=== PATIENT | male | born 1940 | race Caucasian/White ===

== ENCOUNTER 2019-01-30 15:46 | Emergency (ER) | payer MEDICARE, SELFPAY ==
[2019-01-30] VITALS (7 sets, daily range): BP systolic 112–137; BP diastolic 54–85; PULSE 120–172; RESP 10–24; O2SAT 96–100
--- NOTE | 2019-01-30 15:56 | DI.RAD.S_ITS ---
PROCEDURE: XR CHEST 1V INDICATIONS: chest pain TECHNIQUE: One view of the chest was acquired. COMPARISON: None. FINDINGS: Surgical changes and devices: None. Lungs and pleura: Lungs are clear. No pleural effusions or pneumothorax. Mediastinum: Mediastinal contours appear normal. Heart size is normal. Bones and chest wall: No suspicious bony lesions. Overlying soft tissues appear unremarkable. IMPRESSION: Normal chest. Dictated by: Abby Lee M.D. on 01/30/2019 at 16:38 Approved by: Abby Lee M.D. on 01/30/2019 at 16:39
--- NOTE | 2019-01-30 16:03 | ED.ARRPALP ---
HPI - Arrhythmia/Palpitations General Chief Complaint: Arrhythmia/Palpitations Stated Complaint: elevated heartrate - sent by Delilah Time Seen by Provider: 01/30/19 15:52 Source: patient and other (Dr. Yusuf) Mode of arrival: ambulatory Limitations: no limitations History of Present Illness HPI narrative: 78-year-old male comes into the emergency department with complaint of elevated heart rate. Patient was sent by Dr. Yusuf. He went for his annual physical and to establish care with Dr. Salgado and was noted to have a heart rate around 170. Patient states he has felt sort of flushed lately and maybe a little lightheaded and a little bit tired. He has not noticed any palpitations, denies any chest pain or pressure, no shortness of breath. No syncope. He denies any nausea no vomiting no new urinary issues. He occasionally has diarrhea but not regularly. Patient does have diabetes is on metformin and Lantus, takes lisinopril, allopurinol, statin as well as aspirin 81 mg and 1000 units of vitamin-D. Patient states he had a hernia repair on his left inguinal region as a child. He had a stress test remotely he states many years ago. Patient has never had his thyroid checked. Patient states that he has had symptoms for probably a couple days he has been active he pain to his house and has done some other physical activities recently. Related Data Home Medications Medication Instructions Recorded Confirmed allopurinol 300 mg PO DAILY 01/30/19 01/30/19 aspirin 81 mg PO DAILY 01/30/19 01/30/19 cholecalciferol (vitamin D3) 1,000 unit PO QPM 01/30/19 01/30/19 [Vitamin D3] insulin glargine [Lantus Solostar 25 units SUBCUT QPM 01/30/19 01/30/19 U-100 Insulin] lisinopril 40 mg PO DAILY 01/30/19 01/30/19 lovastatin 10 mg PO DAILY 01/30/19 01/30/19 metformin 1,000 mg PO BID 01/30/19 01/30/19 Allergies Allergy/AdvReac Type Severity Reaction Status Date / Time ampicillin Allergy Verified 01/30/19 16:28 Review of Systems Review of Systems ROS Unobtainable: All systems reviewed & are unremarkable except as noted in HPI and below Constitutional Denies chills, Denies excessive sweating, Reports fatigue, Denies fever(s), Denies lethargy, Denies weakness and Reports other (flushed) Cardiovascular Denies chest pain, Denies diaphoresis, Denies syncope, Denies rapid heart rate, Denies edema, Denies irregular heart rhythm, Reports lightheadedness, Denies radiating jaw, neck or arm pain, Denies palpitations, Denies dyspnea, Denies dyspnea on exertion and Denies orthopnea Respiratory Denies change in phlegm color, Denies chest congestion, Denies cough, Denies dyspnea, Denies dyspnea on exertion and Denies wheezing Gastrointestinal Gastrointestinal: Denies abdominal pain, Denies melena, Denies hematochezia, Denies change in bowel habits, Denies diarrhea, Denies nausea and Denies vomiting Genitourinary Denies hematuria, Denies difficulty urinating, Denies dysuria, Denies flank pain, Denies urinary frequency, Denies urinary incontinence and Denies urinary urgency Musculoskeletal Denies back pain Neurologic Denies syncope and Denies weakness Endocrine Denies excessive sweating, Reports fatigue and Denies palpitations Allergic/Immunologic Denies wheezing [facility] Medical History (Updated 01/30/19 @ 16:25 by Anusha Spence DO) Diabetes (Chronic) Dyslipidemia (Chronic) Gout (Chronic) Hypertension (Chronic) Surgical History (Updated 01/30/19 @ 16:09 by Anusha Spence DO) H/O inguinal hernia repair (Chronic) Social History (Updated 01/30/19 @ 16:10 by Anusha Spence DO) alcohol intake: current substance use type: does not use Social History (Updated 01/30/19 @ 16:10 by Anusha Spence DO) alcohol intake: current substance use type: does not use Exam Narrative Exam Narrative: GENERAL: Alert and oriented x three, well-nourished, well-appearing male in mild distress. HEENT: Head normocephalic, atraumatic, EOMI, pupils reactive, face symmetric, moist mucous membranes NECK: Supple, full range of motion CARDIOVASCULAR: Tachycardic and Regular rate and rhythm without murmurs, rubs or gallops. No JVD. RESPIRATORY: Breath sounds equal bilaterally, no wheezes rales or rhonchi. No tachypnea accessory muscle use. ABDOMEN: Soft, nontender. Normoactive bowel sounds all 4 quadrants. No guarding or rebound, rigidity, no mass : No CVA tenderness EXTREMITIES: Normal range of motion, no clubbing or edema. 2+ pulses lower extremities. Neurovascularly intact NEUROLOGICAL: Cranial nerves II through XII grossly intact. Moving all extremities SKIN: Warm, dry, no petechiae, no rashes or lesions. Initial Vital Signs Initial Vital Signs: Vital Signs Pulse Rate 172 H 01/30/19 15:56 Respiratory Rate 18 01/30/19 15:56 Blood Pressure 137/85 01/30/19 15:56 Pulse Oximetry 99 01/30/19 15:56 Course Orders Ordered: ED Orders 01/30/19 15:56 XR chest 1V Stat Complete Blood Count AUTO DIFF Stat Comprehensive Metabolic Panel Stat Lipase Stat Magnesium Stat Prothrombin Time INR Stat Thyroid Stimulating Hormone Stat Troponin & CK Cardiac Panel Stat EKG-12 Lead Stat DILTIAZEM (Diltiazem 125 Mg/125 Ml-D5w) 125 mg in 125 mls @ 5 mls/hr IV TITRATE NEFTALY; Protocol Last Titration: 01/30/19 17:03 Dose: 10 mg/hr, 10 mls/hr Admin: 01/30/19 16:33 Dose: 5 mg/hr, 5 mls/hr Discontinued Medications Adenosine (Adenocard) 6 mg IV NOW ONE Stop: 01/30/19 16:02 Last Admin: 01/30/19 16:05 Dose: 6 mg Adenosine (Adenocard) 12 mg IV NOW ONE Stop: 01/30/19 16:19 Last Admin: 01/30/19 16:12 Dose: 12 mg Aspirin (Aspirin Chew) 324 mg PO NOW ONE Stop: 01/30/19 16:02 Last Admin: 01/30/19 16:33 Dose: 324 mg Diltiazem HCl (Cardizem) 20 mg IV NOW ONE Stop: 01/30/19 16:20 Last Admin: 01/30/19 16:20 Dose: 20 mg Sodium Chloride (Normal Saline 0.9%) 1,000 mls @ 1,000 mls/hr IV BOLUS ONE Stop: 01/30/19 17:02 Last Infusion: 01/30/19 17:58 Dose: 0 mls/hr Admin: 01/30/19 16:29 Dose: 1,000 mls/hr Metoprolol Tartrate (Lopressor) 25 mg PO NOW ONE Stop: 01/30/19 17:18 Last Admin: 01/30/19 17:31 Dose: 25 mg Metoprolol Tartrate (Lopressor) 25 mg PO NOW ONE Stop: 01/30/19 17:59 Last Admin: 01/30/19 18:19 Dose: Not Given Vital Signs - 8 hr 01/30/19 15:56 01/30/19 16:20 01/30/19 16:30 Pulse Rate 172 H 172 H 148 H Respiratory Rate 18 18 Blood Pressure 137/85 128/76 Blood Pressure [Left Arm] 125/73 Pulse Oximetry 99 100 01/30/19 16:53 01/30/19 17:26 01/30/19 18:16 Pulse Rate 165 H 166 H 120 H Respiratory Rate 24 15 22 Blood Pressure Blood Pressure [Left Arm] 115/78 124/77 121/66 Pulse Oximetry 99 99 97 MDM - Arrhythmia/Palpitations Lab Data Result diagrams: 01/30/19 15:56 01/30/19 15:56 Lab Results 01/30/19 01/30/19 01/30/19 Range/Units 15:56 15:56 15:56 WBC 10.6 (4.5-11.0) X10^3/uL RBC 4.83 (4.5-5.9) X10^6/uL Hgb 14.9 (13.5-17.5) g/dL Hct 44.4 (41-53) % MCV 92.1 (80-100) fL MCH 30.9 (26-34) PG MCHC 33.5 (30-36) % RDW 13.6 (11.6-14.8) % Plt Count 438 H (150-400) X10^3/uL Neut % (Auto) 70.7 (50-75) % Lymph % (Auto) 17.8 L (25-40) % Evangeline % (Auto) 8.8 (3-14) % Eos % (Auto) 2.3 (2-4) % Baso % (Auto) 0.4 (0-2) % Neut # (Auto) 7500 H (1518-9473) /uL Lymph # (Auto) 1900 (7682-7330) /uL Evangeline # (Auto) 900 (0-900) /uL Eos # (Auto) 200 (0-450) /uL Baso # (Auto) 0 (0-100) /uL PT 13.4 H (10.1-12.7) SECONDS INR 1.2 (0.9-1.3) Sodium 141 (137-145) mmol/L Potassium 3.6 (3.4-5.1) mmol/L Chloride 102 (98-107) mmol/L Carbon Dioxide 24 (22-32) mmol/L BUN 16 (9-20) mg/dL Creatinine 1.20 (0.66-1.25) mg/dL Estimated GFR 58.9 L (>60) mL/min BUN/Creatinine Ratio 13.3 (6-22) Glucose 131 H (80-110) mg/dL Calcium 9.7 (8.4-10.2) mg/dL Magnesium (1.6-2.3) mg/dL Total Bilirubin 0.6 (0.2-1.3) mg/dL AST 20 (17-59) IU/L ALT 18 L (21-72) IU/L Alkaline Phosphatase 92 (38-126) U/L Total Creatine Kinase 70 (55-170) U/L CK-MB (CK-2) TNP CK-MB (CK-2) Rel Index TNP Troponin I < 0.012 (0.01-0.034) ng/mL Total Protein 7.6 (6.3-8.2) g/dL Albumin 4.4 (3.5-5.0) g/dL Globulin 3.2 (1.7-4.1) g/dL Albumin/Globulin Ratio 1.4 (1.0-2.8) Lipase 95 (23-300) U/L TSH (0.47-4.68) uIU/mL Specimen Hemolysis 01/30/19 01/30/19 Range/Units 15:56 15:56 WBC (4.5-11.0) X10^3/uL RBC (4.5-5.9) X10^6/uL Hgb (13.5-17.5) g/dL Hct (41-53) % MCV (80-100) fL MCH (26-34) PG MCHC (30-36) % RDW (11.6-14.8) % Plt Count (150-400) X10^3/uL Neut % (Auto) (50-75) % Lymph % (Auto) (25-40) % Evangeline % (Auto) (3-14) % Eos % (Auto) (2-4) % Baso % (Auto) (0-2) % Neut # (Auto) (6378-4941) /uL Lymph # (Auto) (5262-5100) /uL Evangeline # (Auto) (0-900) /uL Eos # (Auto) (0-450) /uL Baso # (Auto) (0-100) /uL PT (10.1-12.7) SECONDS INR (0.9-1.3) Sodium Cancelled (137-145) mmol/L Potassium Cancelled (3.4-5.1) mmol/L Chloride Cancelled (98-107) mmol/L Carbon Dioxide Cancelled (22-32) mmol/L BUN Cancelled (9-20) mg/dL Creatinine Cancelled (0.66-1.25) mg/dL Estimated GFR Cancelled (>60) mL/min BUN/Creatinine Ratio Cancelled (6-22) Glucose Cancelled (80-110) mg/dL Calcium Cancelled (8.4-10.2) mg/dL Magnesium 1.6 (1.6-2.3) mg/dL Total Bilirubin (0.2-1.3) mg/dL AST (17-59) IU/L ALT (21-72) IU/L Alkaline Phosphatase (38-126) U/L Total Creatine Kinase Cancelled (55-170) U/L CK-MB (CK-2) Cancelled CK-MB (CK-2) Rel Index Cancelled Troponin I Cancelled (0.01-0.034) ng/mL Total Protein (6.3-8.2) g/dL Albumin (3.5-5.0) g/dL Globulin (1.7-4.1) g/dL Albumin/Globulin Ratio (1.0-2.8) Lipase (23-300) U/L TSH 1.48 (0.47-4.68) uIU/mL Specimen Hemolysis Cancelled Imaging Data Chest x-ray: Radiologist's impression: [address] [address] XRay Report Signed Patient: Samina Adams HMR#: [id number] : 3Acct:[id number] Age/Sex: 78 / MDate of Service: 01/30/19 Loc: ED Accession Number: [id number] Procedure: XR chest 1V Ordering Provider: Anusha Spence D.O. PROCEDURE: XR CHEST 1V INDICATIONS: chest pain TECHNIQUE: One view of the chest was acquired. COMPARISON: None. FINDINGS: Surgical changes and devices: None. Lungs and pleura: Lungs are clear. No pleural effusions or pneumothorax. Mediastinum: Mediastinal contours appear normal. Heart size is normal. Bones and chest wall: No suspicious bony lesions. Overlying soft tissues appear unremarkable. IMPRESSION: Normal chest. Dictated by: Abby Lee M.D. on 01/30/2019 at 16:38 Approved by: Abby Lee M.D. on 01/30/2019 at 16:39 ECG Data Attestation: I personally reviewed and interpreted this ECG as follows: Prior ECG tracings: not available for review Interpretation: Supraventricular tachycardia with a rate of 169 QRS of [address] changes. No prior EKGs available. Patient receives adenosine 6 which made very little improvement, received 12 mg adenosine patient's heart rate slowed for a short period of time about 15 seconds. In that time we were able to see the patient appears to have flutter waves that his rhythm is likely an atrial flutter rather than in SVT. MDM Narrative Medical decision making narrative: Patient comes in with elevated heart rate, it is unclear how long this episode has been going on he has had symptoms for maybe a day or 2, although they have been very mild. He states he has had episodes on and off in the past and he has no idea what exactly they started or how frequently they happened or how frequently they last. Patient is not a candidate for electrical cardioversion based on that unless he was unstable which night now he does not appear to be patient started on Cardizem bolus followed by a drip as patient continued of elevated heart rate. Chest x-ray shows no acute process. Lab work shows no major abnormalities. Patient continues to be [place] [address] range. Patient has not dropped lower than this. I spoke with Dr. Brewer with local cardiology, he recommends continuing Cardizem. If patient's blood pressure will tolerate adding metoprolol 25 mg p.o. Q 6 hours. We do not have any ICU beds available so we will have to transfer the patient. Discussed with patient he lives in [place] so [place] be closer. Dr. Navarro on accepts for transfer. Discharge Plan Departure Clinical Impression: Atrial flutter with rapid ventricular response Prescriptions: No Action lovastatin 10 mg tablet 10 mg PO DAILY RF: 0 metformin 1,000 mg tablet 1,000 mg PO BID RF: 0 allopurinol 300 mg tablet 300 mg PO DAILY RF: 0 lisinopril 40 mg tablet 40 mg PO DAILY RF: 0 Lantus Solostar U-100 Insulin 100 unit/mL (3 mL) insulin pen 25 units subcut QPM RF: 0 aspirin 81 mg Tablet,Delayed Release (Dr/Ec) 81 mg PO DAILY RF: 0 cholecalciferol (vitamin D3) [Vitamin D3] 1,000 unit Capsule 1,000 unit PO QPM RF: 0
[2019-01-30] MEDS: ADENOSINE 6 MG/2 ML VIAL IV (16:05)
--- NOTE | 2019-01-30 16:06 | ED_ITS ---
HPI - Arrhythmia/Palpitations General Chief Complaint: Arrhythmia/Palpitations Stated Complaint: elevated heartrate - sent by Delilah Time Seen by Provider: 01/30/19 15:52 Source: patient and other (Dr. Yusuf) Mode of arrival: ambulatory Limitations: no limitations History of Present Illness HPI narrative: 78-year-old male comes into the emergency department with complaint of elevated heart rate. Patient was sent by Dr. Yusuf. He went for his annual physical and to establish care with Dr. Salgado and was noted to have a heart rate around 170. Patient states he has felt sort of flushed lately and maybe a little lightheaded and a little bit tired. He has not noticed any palpitations, denies any chest pain or pressure, no shortness of breath. No syncope. He denies any nausea no vomiting no new urinary issues. He occasionally has diarrhea but not regularly. Patient does have diabetes is on metformin and Lantus, takes lisinopril, allopurinol, statin as well as aspirin 81 mg and 1000 units of vitamin-D. Patient states he had a hernia repair on his left inguinal region as a child. He had a stress test remotely he states many years ago. Patient has never had his thyroid checked. Patient states that he has had symptoms for probably a couple days he has been active he pain to his house and has done some other physical activities recently. Related Data Home Medications Medication Instructions Recorded Confirmed allopurinol 300 mg PO DAILY 01/30/19 01/30/19 aspirin 81 mg PO DAILY 01/30/19 01/30/19 cholecalciferol (vitamin D3) 1,000 unit PO QPM 01/30/19 01/30/19 [Vitamin D3] insulin glargine [Lantus Solostar 25 units SUBCUT QPM 01/30/19 01/30/19 U-100 Insulin] lisinopril 40 mg PO DAILY 01/30/19 01/30/19 lovastatin 10 mg PO DAILY 01/30/19 01/30/19 metformin 1,000 mg PO BID 01/30/19 01/30/19 Allergies Allergy/AdvReac Type Severity Reaction Status Date / Time ampicillin Allergy Verified 01/30/19 16:28 Review of Systems Review of Systems ROS Unobtainable: All systems reviewed & are unremarkable except as noted in HPI and below Constitutional Denies chills, Denies excessive sweating, Reports fatigue, Denies fever(s), Denies lethargy, Denies weakness and Reports other (flushed) Cardiovascular Denies chest pain, Denies diaphoresis, Denies syncope, Denies rapid heart rate, Denies edema, Denies irregular heart rhythm, Reports lightheadedness, Denies radiating jaw, neck or arm pain, Denies palpitations, Denies dyspnea, Denies dyspnea on exertion and Denies orthopnea Respiratory Denies change in phlegm color, Denies chest congestion, Denies cough, Denies dyspnea, Denies dyspnea on exertion and Denies wheezing Gastrointestinal Gastrointestinal: Denies abdominal pain, Denies melena, Denies hematochezia, Denies change in bowel habits, Denies diarrhea, Denies nausea and Denies vomit ing Genitourinary Denies hematuria, Denies difficulty urinating, Denies dysuria, Denies flank pain, Denies urinary frequency, Denies urinary incontinence and Denies urinary urgency Musculoskeletal Denies back pain Neurologic Denies syncope and Denies weakness Endocrine Denies excessive sweating, Reports fatigue and Denies palpitations Allergic/Immunologic Denies wheezing [facility] Medical History (Updated 01/30/19 @ 16:25 by Anusha Spence DO) Diabetes (Chronic) Dyslipidemia (Chronic) Gout (Chronic) Hypertension (Chronic) Surgical History (Updated 01/30/19 @ 16:09 by Anusha Spence DO) H/O inguinal hernia repair (Chronic) Social History (Updated 01/30/19 @ 16:10 by Anusha Spence DO) alcohol intake: current substance use type: does not use Social History (Updated 01/30/19 @ 16:10 by Anusha Spence DO) alcohol intake: current substance use type: does not use Exam Narrative Exam Narrative: GENERAL: Alert and oriented x three, well-nourished, well- appearing male in mild distress. HEENT: Head normocephalic, atraumatic, EOMI, pupils reactive, face symmetric, moist mucous membranes NECK: Supple, full range of motion CARDIOVASCULAR: Tachycardic and Regular rate and rhythm without murmurs, rubs or gallops. No JVD. RESPIRATORY: Breath sounds equal bilaterally, no wheezes rales or rhonchi. No tachypnea accessory muscle use. ABDOMEN: Soft, nontender. Normoactive bowel sounds all 4 quadrants. No guarding or rebound, rigidity, no mass : No CVA tenderness EXTREMITIES: Normal range of motion, no clubbing or edema. 2+ pulses lower extremities. Neurovascularly intact NEUROLOGICAL: Cranial nerves II through XII grossly intact. Moving all extremities SKIN: Warm, dry, no petechiae, no rashes or lesions. Initial Vital Signs Initial Vital Signs: Vital Signs Pulse Rate 172 H 01/30/19 15:56 Respiratory Rate 18 01/30/19 15:56 Blood Pressure 137/85 01/30/19 15:56 Pulse Oximetry 99 01/30/19 15:56 Course Orders Ordered: ED Orders 01/30/19 15:56 XR chest 1V Stat Complete Blood Count AUTO DIFF Stat Comprehensive Metabolic Panel Stat Lipase Stat Magnesium Stat Prothrombin Time INR Stat Thyroid Stimulating Hormone Stat Troponin & CK Cardiac Panel Stat EKG-12 Lead Stat DILTIAZEM (Diltiazem 125 Mg/125 Ml-D5w) 125 mg in 125 mls @ 5 mls/hr IV TITRATE NEFTALY; Protocol Last Titration: 01/30/19 17:03 Dose: 10 mg/hr, 10 mls/hr Admin: 01/30/19 16:33 Dose: 5 mg/hr, 5 mls/hr Discontinued Medications Adenosine (Adenocard) 6 mg IV NOW ONE Stop: 01/30/19 16:02 Last Admin: 01/30/19 16:05 Dose: 6 mg Adenosine (Adenocard) 12 mg IV NOW ONE Stop: 01/30/19 16:19 Last Admin: 01/30/19 16:12 Dose: 12 mg Aspirin (Aspirin Chew) 324 mg PO NOW ONE Stop: 01/30/19 16:02 Last Admin: 01/30/19 16:33 Dose: 324 mg Diltiazem HCl (Cardizem) 20 mg IV NOW ONE Stop: 01/30/19 16:20 Last Admin: 01/30/19 16:20 Dose: 20 mg Sodium Chloride (Normal Saline 0.9%) 1,000 mls @ 1,000 mls/hr IV BOLUS ONE Stop: 01/30/19 17:02 Last Infusion: 01/30/19 17:58 Dose: 0 mls/hr Admin: 01/30/19 16:29 Dose: 1,000 mls/hr Metoprolol Tartrate (Lopressor) 25 mg PO NOW ONE Stop: 01/30/19 17:18 Last Admin: 01/30/19 17:31 Dose: 25 mg Metoprolol Tartrate (Lopressor) 25 mg PO NOW ONE Stop: 01/30/19 17:59 Last Admin: 01/30/19 18:19 Dose: Not Given Vital Signs - 8 hr 01/30/19 15:56 01/30/19 16:20 01/30/19 16:30 Pulse Rate 172 H 172 H 148 H Respiratory Rate 18 18 Blood Pressure 137/85 128/76 Blood Pressure [Left Arm] 125/73 Pulse Oximetry 99 100 01/30/19 16:53 01/30/19 17:26 01/30/19 18:16 Pulse Rate 165 H 166 H 120 H Respiratory Rate 24 15 22 Blood Pressure Blood Pressure [Left Arm] 115/78 124/77 121/66 Pulse Oximetry 99 99 97 MDM - Arrhythmia/Palpitations Lab Data Result diagrams: 01/30/19 15:56 01/30/19 15:56 Lab Results 01/30/19 01/30/19 01/30/19 Range/Units 15:56 15:56 15:56 WBC 10.6 (4.5-11.0) X10^3/uL RBC 4.83 (4.5-5.9) X10^6/uL Hgb 14.9 (13.5-17.5) g/dL Hct 44.4 (41-53) % MCV 92.1 (80-100) fL MCH 30.9 (26-34) PG MCHC 33.5 (30-36) % RDW 13.6 (11.6-14.8) % Plt Count 438 H (150-400) X10^3/uL Neut % (Auto) 70.7 (50-75) % Lymph % (Auto) 17.8 L (25-40) % [place] % (Auto) 8.8 (3-14) % Eos % (Auto) 2.3 (2-4) % Baso % (Auto) 0.4 (0-2) % Neut # (Auto) 7500 H (9774-3530) /uL Lymph # (Auto) 1900 (2158-8742) /uL [place] # (Auto) 900 (0-900) /uL Eos # (Auto) 200 (0-450) /uL Baso # (Auto) 0 (0-100) /uL PT 13.4 H (10.1-12.7) SECONDS INR 1.2 (0.9-1.3) Sodium 141 (137-145) mmol/L Potassium 3.6 (3.4-5.1) mmol/L Chloride 102 (98-107) mmol/L Carbon Dioxide 24 (22-32) mmol/L BUN 16 (9-20) mg/dL Creatinine 1.20 (0.66-1.25) mg/dL Estimated GFR 58.9 L (>60) mL/min BUN/Creatinine Ratio 13.3 (6-22) Glucose 131 H (80-110) mg/dL Calcium 9.7 (8.4-10.2) mg/dL Magnesium (1.6-2.3) mg/dL Total Bilirubin 0.6 (0.2-1.3) mg/dL AST 20 (17-59) IU/L ALT 18 L (21-72) IU/L Alkaline Phosphatase 92 (38-126) U/L Total Creatine Kinase 70 (55-170) U/L CK-MB (CK-2) TNP CK-MB (CK-2) Rel Index TNP Troponin I < 0.012 (0.01-0.034) ng/mL Total Protein 7.6 (6.3-8.2) g/dL Albumin 4.4 (3.5-5.0) g/dL Globulin 3.2 (1.7-4.1) g/dL Albumin/Globulin Ratio 1.4 (1.0-2.8) Lipase 95 (23-300) U/L TSH (0.47-4.68) uIU/mL Specimen Hemolysis 01/30/19 01/30/19 Range/Units 15:56 15:56 WBC (4.5-11.0) X10^3/uL RBC (4.5-5.9) X10^6/uL Hgb (13.5-17.5) g/dL Hct (41-53) % MCV (80-100) fL MCH (26-34) PG MCHC (30-36) % RDW (11.6-14.8) % Plt Count (150-400) X10^3/uL Neut % (Auto) (50-75) % Lymph % (Auto) (25-40) % [place] % (Auto) (3-14) % Eos % (Auto) (2-4) % Baso % (Auto) (0-2) % Neut # (Auto) (4558-1874) /uL Lymph # (Auto) (5474-0371) /uL [place] # (Auto) (0-900) /uL Eos # (Auto) (0-450) /uL Baso # (Auto) (0-100) /uL PT (10.1-12.7) SECONDS INR (0.9-1.3) Sodium Cancelled (137-145) mmol/L Potassium Cancelled (3.4-5.1) mmol/L Chloride Cancelled (98-107) mmol/L Carbon Dioxide Cancelled (22-32) mmol/L BUN Cancelled (9-20) mg/dL Creatinine Cancelled (0.66-1.25) mg/dL Estimated GFR Cancelled (>60) mL/min BUN/Creatinine Ratio Cancelled (6-22) Glucose Cancelled (80-110) mg/dL Calcium Cancelled (8.4-10.2) mg/dL Magnesium 1.6 (1.6-2.3) mg/dL Total Bilirubin (0.2-1.3) mg/dL AST (17-59) IU/L ALT (21-72) IU/L Alkaline Phosphatase (38-126) U/L Total Creatine Kinase Cancelled (55-170) U/L CK-MB (CK-2) Cancelled CK-MB (CK-2) Rel Index Cancelled Troponin I Cancelled (0.01-0.034) ng/mL Total Protein (6.3-8.2) g/dL Albumin (3.5-5.0) g/dL Globulin (1.7-4.1) g/dL Albumin/Globulin Ratio (1.0-2.8) Lipase (23-300) U/L TSH 1.48 (0.47-4.68) uIU/mL Specimen Hemolysis Cancelled Imaging Data Chest x-ray: Radiologist's impression: [address] [address] XRay Report Signed Patient: Samina Adams HMR#: [id number] : 3Acct:[id number] Age/Sex: 78 / MDate of Service: 01/30/19 Loc: ED Accession Number: [id number] Procedure: XR chest 1V Ordering Provider: Anusha Spence D.O. PROCEDURE: XR CHEST 1V INDICATIONS: chest pain TECHNIQUE: One view of the chest was acquired. COMPARISON: None. FINDINGS: Surgical changes and devices: None. Lungs and pleura: Lungs are clear. No pleural effusions or pneumothorax. Mediastinum: Mediastinal contours appear normal. Heart size is normal. Bones and chest wall: No suspicious bony lesions. Overlying soft tissues appear unremarkable. IMPRESSION: Normal chest. Dictated by: Abby Lee M.D. on 01/30/2019 at 16:38 Approved by: Abby Lee M.D. on 01/30/2019 at 16:39 ECG Data Attestation: I personally reviewed and interpreted this ECG as follows: Prior ECG tracings: not available for review Interpretation: Supraventricular tachycardia with a rate of 169 QRS of [address] changes. No prior EKGs available. Patient receives adenosine 6 which made very little improvement, received 12 mg adenosine patient's heart rate slowed for a short period of time about 15 seconds. In that time we were able to see the patient appears to have flutter waves that his rhythm is likely an atrial flutter rather than in SVT. MDM Narrative Medical decision making narrative: Patient comes in with elevated heart rate, it is unclear how long this episode has been going on he has had symptoms for maybe a day or 2, although they have been very mild. He states he has had episodes on and off in the past and he has no idea what exactly they started or how frequently they happened or how frequently they last. Patient is not a candidate for electrical cardioversion based on that unless he was unstable which night now he does not appear to be patient started on Cardizem bolus followed by a drip as patient continued of elevated heart rate. Chest x-ray shows no acute process. Lab work shows no major abnormalities. Patient continues to be elevated sometimes in the [id number] range. Patient has not dropped lower than this. I spoke with Dr. Brewer with local cardiology, he recommends continuing Cardizem. If patient's blood pressure will tolerate adding metoprolol 25 mg p.o. Q 6 hours. We do not have any ICU beds available so we will have to transfer the patient. Discussed with patient he lives in [place] so [place] be closer. Dr. Navarro on accepts for transfer. Discharge Plan Departure Clinical Impression: Atrial flutter with rapid ventricular response Prescriptions: No Action lovastatin 10 mg tablet 10 mg PO DAILY RF: 0 metformin 1,000 mg tablet 1,000 mg PO BID RF: 0 allopurinol 300 mg tablet 300 mg PO DAILY RF: 0 lisinopril 40 mg tablet 40 mg PO DAILY RF: 0 Lantus Solostar U-100 Insulin 100 unit/mL (3 mL) insulin pen 25 units subcut QPM RF: 0 aspirin 81 mg Tablet,Delayed Release (Dr/Ec) 81 mg PO DAILY RF: 0 cholecalciferol (vitamin D3) [Vitamin D3] 1,000 unit Capsule 1,000 unit PO QPM RF: 0
[2019-01-30] MEDS: ADENOSINE 6 MG/2 ML VIAL 12 MG IV (16:12)
[2019-01-30] MEDS: dilTIAZem 5 MG/ML SDV 20 MG IV (16:20)
[2019-01-30] MEDS: SODIUM CHLORIDE 0.9% 1,000 ML 1000 ML IV (16:29)
[2019-01-30] MEDS: ASPIRIN 81 MG TAB 324 MG PO (16:33)
[2019-01-30] MEDS: DILTIAZEM 125 MG/125 ML PIGGYBACK IV (16:33)
[2019-01-30 16:39] LABS: Add Manual Diff / Slide Review NO; Basophils Absolute Auto 0 /uL (0-100); Basophils Percent Auto 0.4 % (0-2); Eosinophils Absolute Auto 200 /uL (0-450); Eosinophils Percent Auto 2.3 % (2-4); Hematocrit 44.4 % (41-53); Hemoglobin 14.9 g/dL (13.5-17.5); Lymphocytes Absolute Auto 1900 /uL (1100-4500); Lymphocytes Percent Auto 17.8 % (25-40); Mean Corpuscular HGB Conc 33.5 % (30-36); Mean Corpuscular Hemoglobin 30.9 PG (26-34); Mean Corpuscular Volume 92.1 fL (80-100); Monocytes Absolute Auto 900 /uL (0-900); Monocytes Percent Auto 8.8 % (3-14); Neutrophils Absolute Auto 7500 /uL (1500-7000); Neutrophils Percent Auto 70.7 % (50-75); Platelet Count 438 X10^3/uL (150-400); Red Blood Cell Count 4.83 X10^6/uL (4.5-5.9); Red Cell Distribution Width 13.6 % (11.6-14.8); White Blood Cell Count 10.6 X10^3/uL (4.5-11.0)
[2019-01-30 16:44] LABS: INR 1.2 (0.9-1.3); Prothrombin Time 13.4 SECONDS (10.1-12.7)
[2019-01-30 16:54] LABS: Alanine Aminotransferase 18 IU/L (21-72); Albumin 4.4 g/dL (3.5-5.0); Albumin Globulin Ratio 1.4 (1.0-2.8); Alkaline Phosphatase 92 U/L (38-126); Aspartate Aminotransferase 20 IU/L (17-59); BUN Creatinine Ratio 13.3 (6-22); Bilirubin Total 0.6 mg/dL (0.2-1.3); Blood Urea Nitrogen 16 mg/dL (9-20); Calcium 9.7 mg/dL (8.4-10.2); Carbon Dioxide 24 mmol/L (22-32); Chloride 102 mmol/L (98-107); Creatine Kinase 70 U/L (55-170); Estimated Glomerular Filt Rate 58.9 mL/min (>60); Globulin 3.2 g/dL (1.7-4.1); Glucose 131 mg/dL (80-110); HEMOLYSIS < 15 (0-50); Lipase 95 U/L (23-300); Potassium 3.6 mmol/L (3.4-5.1); Sodium 141 mmol/L (137-145); Total Protein 7.6 g/dL (6.3-8.2)
[2019-01-30 16:55] LABS: Magnesium 1.6 mg/dL (1.6-2.3)
[2019-01-30 17:06] LABS: Troponin I < 0.012 ng/mL (0.01-0.034)
[2019-01-30 17:25] LABS: Thyroid Stimulating Hormone 1.48 uIU/mL (0.47-4.68)
[2019-01-30] MEDS: METOPROLOL IR 25 MG TABLET PO (17:31)
== END 2019-01-30 19:43 | disposition short-term general hospital (02) ==
PROVIDERS: Emergency Provider Emergency Medicine; Family Provider Internal Medicine; PCP Internal Medicine
DX: I48.92 Unspecified atrial flutter (principal)
CPT/HCPCS: 36591; 71045; 80053; 82550; 83690; 83735; 84443; 84484; 85025; 85610; 93005; 96365; 96366; 96375; 96376; 99284; 99291; J0153

== ENCOUNTER 2019-02-17 15:13 | Inpatient (IN) | payer MEDICARE, SELFPAY ==
[2019-02-17] VITALS (19 sets, daily range): BP systolic 97–141; BP diastolic 52–81; PULSE 67–126; RESP 12–23; TEMP 36.4–36.6; O2SAT 96–99; BMI 26.0
--- NOTE | 2019-02-17 15:19 | ED.ARRPALP ---
HPI - Arrhythmia/Palpitations General Chief Complaint: Arrhythmia/Palpitations Stated Complaint: states in Afib Time Seen by Provider: 02/17/19 15:13 Source: patient and family Mode of arrival: ambulatory Limitations: no limitations History of Present Illness HPI narrative: 78-year-old male nonsmoker with newly diagnosed atrial fibrillation returns with his son in the chief complaint of recurrence of AFib. Patient was seeing his primary care provider on January 31 for a routine annual and was found to be in a rapid atrial fibrillation. He had very little in the way of symptoms and was sent to the emergency department. He was not a candidate for cardioversion at that time and ended up requiring a drip of Cardizem, we had no available beds at the time and he was therefore transferred to [facility] in [place]. He was admitted there for 3 days and included a cardiology consultation, echocardiogram which showed no atrial appendage clot, patient was cardioverted and placed Eliquis and metoprolol. About a week later the patient had a recurrence of rapid AFib and he presented to the emergency department at [facility] at which point he was cardioverted and had his metoprolol increased. Today he presents because his watch notified him an elevated heart rate, he feels some palpitations but denies classic symptoms such as chest pain, shortness of breath dizziness, or lightheadedness. He states he has missed none of his doses of Eliquis Related Data Home Medications Medication Instructions Recorded Confirmed allopurinol 300 mg PO DAILY 01/30/19 02/17/19 cholecalciferol (vitamin D3) 1,000 unit PO QPM 01/30/19 02/17/19 [Vitamin D3] insulin glargine [Lantus Solostar 20 units SUBCUT QPM 01/30/19 02/17/19 U-100 Insulin] lisinopril 40 mg PO DAILY 01/30/19 02/17/19 lovastatin 10 mg PO DAILY 01/30/19 02/17/19 metformin 500 mg PO BID 01/30/19 02/17/19 apixaban [Eliquis] 5 mg PO BID 02/17/19 02/17/19 metoprolol succinate 25 mg PO BID 02/17/19 02/17/19 Allergies Allergy/AdvReac Type Severity Reaction Status Date / Time ampicillin Allergy causes Verified 02/17/19 15:58 bleeding in his bowels. Review of Systems Constitutional Denies chills, Denies fever(s), Denies lethargy and Denies weakness Eyes Denies change in vision, Denies eye discharge, Denies irritation and Denies loss of vision ENT Ears, Nose, Mouth, and Throat: Denies change in voice, Denies neck pain and Denies sore throat Cardiovascular Denies chest pain, Reports rapid heart rate, Denies irregular heart rhythm, Denies lightheadedness, Denies palpitations, Denies dyspnea, Denies dyspnea on exertion and Denies orthopnea Respiratory Denies cough, Denies dyspnea, Denies dyspnea on exertion and Denies wheezing Gastrointestinal Gastrointestinal: Denies abdominal pain, Denies change in bowel habits, Denies diarrhea, Denies nausea and Denies vomiting Genitourinary Denies hematuria, Denies flank pain, Denies urinary incontinence and Denies urinary urgency Musculoskeletal Denies neck pain Integumentary/Breasts Denies pruritus, Denies erythema, Denies rash and Denies wounds Neurologic Denies confusion, Denies loss of vision and Denies weakness Psychiatric Denies anxiety, Denies confusion, Denies depression, Denies homicidal ideation and Denies suicidal ideation Endocrine Denies palpitations Hematologic/Lymphatic Denies easy bruising Allergic/Immunologic Denies wheezing [facility] Medical History Diabetes (Chronic) Dyslipidemia (Chronic) Gout (Chronic) Hypertension (Chronic) Surgical History H/O inguinal hernia repair (Chronic) Social History (Updated 01/30/19 @ 16:10 by Anusha Spence DO) household members: spouse Smoking Status: Never smoker alcohol intake: current substance use type: does not use Social History household members: spouse Smoking Status: Never smoker alcohol intake: current substance use type: does not use Exam Narrative Exam Narrative: GENERAL: [78] year old patient appears stated age. Well-nourished, well-developed patient, in mild distress. HEAD: Atraumatic. Normocephalic. EYES: Pupils equal round and reactive. Extraocular motions intact. No scleral icterus. No injection or drainage. ENT: Nose without bleeding, purulent drainage. Throat without erythema, tonsillar hypertrophy or exudate. Airway patent. NECK: Trachea midline. Non tender CARDIOVASCULAR: Rapid and irregular rhythm without murmurs, gallops, or rubs. RESPIRATORY: Clear to auscultation. Breath sounds equal bilaterally. No wheezes, rales, or rhonchi. GASTROINTESTINAL: Abdomen soft, non-tender, nondistended. EXTREMITIES: No edema or joint tenderness. BACK: Nontender without deformity or crepitance. No flank tenderness. NEURO: AOx3. SKIN: No rash or erythema of visible areas Initial Vital Signs Initial Vital Signs: Vital Signs Temperature 97.6 F 02/17/19 15:21 Pulse Rate 117 H 02/17/19 15:21 Respiratory Rate 17 02/17/19 15:21 Blood Pressure 141/76 H 02/17/19 15:21 Pulse Oximetry 98 02/17/19 15:21 Procedures Cardioversion Consent Signed: Yes Indication: Rapid AFib, questionable ST depressions Number of attempts (shocks): 3 Joules used: 150 Cardiac rhythm post-cardioversion: Rapid AFib Procedural Sedation Patient Age: Patient is 5yrs or older Consent signed: Yes Time out performed: Yes Indication: cardioversion ASA Class: II Mallampati Airway Classification: Class II Preparation: vehicle monitor technician applied, pulse oximeter, capnometry used, supplemental O2 applied, suction/airway equipment at bedside and IV secured IV Propofol dose (mg): 50 Complications: hypoventilation Interventions: Airway repositioned Course Course Narrative: Patient with rapid atrial fibrillation is sedated and attempts at cardioversion given his use of Eliquis and ST depressions on EKG. The cardioversion was unsuccessful and patient was therefore put on Cardizem drip. Orders Ordered: ED Orders 02/17/19 15:30 Basic Metabolic Panel Stat Complete Blood Count AUTO DIFF Stat Magnesium Stat Thyroid Stimulating Hormone Stat Sodium Chloride (Normal Saline 0.9%) 1,000 mls @ 150 mls/hr IV CONT NEFTALY Last Infusion: 02/17/19 18:04 Dose: 150 mls/hr Admin: 02/17/19 16:00 Dose: 150 mls/hr DILTIAZEM (Diltiazem 125 Mg/125 Ml-D5w) 125 mg in 125 mls @ 5 mls/hr IV TITRATE NEFTALY; Protocol Last Titration: 02/17/19 18:05 Dose: 5 mg/hr, 5 mls/hr Admin: 02/17/19 17:04 Dose: 5 mg/hr, 5 mls/hr Discontinued Medications Diltiazem HCl (Cardizem) 10 mg IV NOW ONE Stop: 02/17/19 16:44 Last Admin: 02/17/19 17:03 Dose: 10 mg Propofol (Diprivan) 85 mg 1 mg/kg (85 mg) IV NOW ONE Stop: 02/17/19 16:33 Last Admin: 02/17/19 16:54 Dose: 50 mg Vital Signs - 8 hr 02/17/19 15:21 02/17/19 16:00 02/17/19 16:27 Temperature 97.6 F Pulse Rate 117 H 124 H Respiratory Rate 17 18 14 Blood Pressure 141/76 H Blood Pressure [Left Arm] 130/79 Pulse Oximetry 98 98 02/17/19 16:30 02/17/19 16:35 02/17/19 16:40 Temperature Pulse Rate 123 H 116 H 119 H Respiratory Rate 23 16 16 Blood Pressure Blood Pressure [Left Arm] 123/72 126/81 105/73 Pulse Oximetry 99 99 99 02/17/19 16:45 02/17/19 16:50 02/17/19 16:55 Temperature Pulse Rate 126 H 115 H 110 H Respiratory Rate 17 14 17 Blood Pressure Blood Pressure [Left Arm] 100/54 L 98/57 L 97/59 L Pulse Oximetry 98 96 96 02/17/19 17:03 02/17/19 17:30 02/17/19 18:00 Temperature Pulse Rate 108 H 93 H 91 H Respiratory Rate 15 12 Blood Pressure 115/64 Blood Pressure [Left Arm] 107/76 112/65 Pulse Oximetry 99 98 MDM - Arrhythmia/Palpitations Lab Data Result diagrams: 02/17/19 15:30 02/17/19 15:30 Lab Results 02/17/19 02/17/19 02/17/19 Range/Units 15:30 15:30 15:30 WBC 9.5 (4.5-11.0) X10^3/uL RBC 5.02 (4.5-5.9) X10^6/uL Hgb 15.3 (13.5-17.5) g/dL Hct 45.2 (41-53) % MCV 90.0 (80-100) fL MCH 30.4 (26-34) PG MCHC 33.8 (30-36) % RDW 13.5 (11.6-14.8) % Plt Count 410 H (150-400) X10^3/uL Neut % (Auto) 66.2 (50-75) % Lymph % (Auto) 22.8 L (25-40) % [place] % (Auto) 8.2 (3-14) % Eos % (Auto) 2.0 (2-4) % Baso % (Auto) 0.8 (0-2) % Neut # (Auto) 6300 (5110-0708) /uL Lymph # (Auto) 2200 (4524-4450) /uL [place] # (Auto) 800 (0-900) /uL Eos # (Auto) 200 (0-450) /uL Baso # (Auto) 100 (0-100) /uL Sodium 140 (137-145) mmol/L Potassium 4.0 (3.4-5.1) mmol/L Chloride 108 H (98-107) mmol/L Carbon Dioxide 20 L (22-32) mmol/L BUN 18 (9-20) mg/dL Creatinine 1.10 (0.66-1.25) mg/dL Estimated GFR > 60.0 (>60) mL/min BUN/Creatinine Ratio 16.4 (6-22) Glucose 126 H (80-110) mg/dL Calcium 10.2 (8.4-10.2) mg/dL Magnesium 1.9 (1.6-2.3) mg/dL TSH 1.34 (0.47-4.68) uIU/mL Discharge Plan Departure Patient Disposition: Admitted As Inpatient Clinical Impression: Atrial fibrillation Qualifiers: Atrial fibrillation type: paroxysmal Qualified Code(s): I48.0 - Paroxysmal atrial fibrillation Discharge Date/Time: 02/17/19 18:00 Interventions: ED Discharge Assessment Last Done: 02/17/19 18:00 Admit Date/Time: 02/17/19 17:36 Admit Provider: Tamara Babb
[2019-02-17 15:57] LABS: Add Manual Diff / Slide Review NO; Basophils Absolute Auto 100 /uL (0-100); Basophils Percent Auto 0.8 % (0-2); Eosinophils Absolute Auto 200 /uL (0-450); Hematocrit 45.2 % (41-53); Hemoglobin 15.3 g/dL (13.5-17.5); Lymphocytes Absolute Auto 2200 /uL (1100-4500); Lymphocytes Percent Auto 22.8 % (25-40); Mean Corpuscular HGB Conc 33.8 % (30-36); Mean Corpuscular Hemoglobin 30.4 PG (26-34); Monocytes Absolute Auto 800 /uL (0-900); Monocytes Percent Auto 8.2 % (3-14); Neutrophils Absolute Auto 6300 /uL (1500-7000); Neutrophils Percent Auto 66.2 % (50-75); Platelet Count 410 X10^3/uL (150-400); Red Blood Cell Count 5.02 X10^6/uL (4.5-5.9); Red Cell Distribution Width 13.5 % (11.6-14.8); White Blood Cell Count 9.5 X10^3/uL (4.5-11.0)
[2019-02-17] MEDS: SODIUM CHLORIDE 0.9% 1,000 ML 150 ML IV (16:00)
[2019-02-17 16:04] LABS: BUN Creatinine Ratio 16.4 (6-22); Blood Urea Nitrogen 18 mg/dL (9-20); Calcium 10.2 mg/dL (8.4-10.2); Carbon Dioxide 20 mmol/L (22-32); Chloride 108 mmol/L (98-107); Estimated Glomerular Filt Rate > 60.0 mL/min (>60); Glucose 126 mg/dL (80-110); HEMOLYSIS 21 (0-50); Magnesium 1.9 mg/dL (1.6-2.3); Sodium 140 mmol/L (137-145)
--- NOTE | 2019-02-17 16:18 | PC.NURSE ---
The only sx pt had was he noticed his heartrate on the monitor at home. denies chest pain, denies n/v, denies dizziness. Recently received cardioversion at [facility] Monday the 13 of February. On Elaquis and metoprolol. Pt alert, oriented arrived with his son.
[2019-02-17 16:38] LABS: Thyroid Stimulating Hormone 1.34 uIU/mL (0.47-4.68)
[2019-02-17] MEDS: PROPOFOL 200 MG/20 ML VIAL 85 MG IV (16:54)
[2019-02-17] MEDS: dilTIAZem 5 MG/ML SDV 10 MG IV (17:03)
[2019-02-17] MEDS: DILTIAZEM 125 MG/125 ML PIGGYBACK IV (17:04)
--- NOTE | 2019-02-17 17:29 | ED_ITS ---
HPI - Arrhythmia/Palpitations General Chief Complaint: Arrhythmia/Palpitations Stated Complaint: states in Afib Time Seen by Provider: 02/17/19 15:13 Source: patient and family Mode of arrival: ambulatory Limitations: no limitations History of Present Illness HPI narrative: 78-year-old male nonsmoker with newly diagnosed atrial fibrillation returns with his son in the chief complaint of recurrence of AFib. Patient was seeing his primary care provider on January 31 for a routine annual and was found to be in a rapid atrial fibrillation. He had very little in the way of symptoms and was sent to the emergency department. He was not a candidate for cardioversion at that time and ended up requiring a drip of Ca rdizem, we had no available beds at the time and he was therefore transferred to [facility] in [place]. He was admitted there for 3 days and included a cardiology consultation, echocardiogram which showed no atrial appendage clot, patient was cardioverted and placed Eliquis and metoprolol. About a week later the patient had a recurrence of rapid AFib and he presented to the emergency department at [facility] at which point he was cardioverted and had his metoprolol increased. Today he presents because his watch notified him an elevated heart rate, he feels some palpitations but denies classic symptoms such as chest pain, shortness of breath dizziness, or lightheadedness. He states he has missed none of his doses of Eliquis Related Data Home Medications Medication Instructions Recorded Confirmed allopurinol 300 mg PO DAILY 01/30/19 02/17/19 cholecalciferol (vitamin D3) 1,000 unit PO QPM 01/30/19 02/17/19 [Vitamin D3] insulin glargine [Lantus Solostar 20 units SUBCUT QPM 01/30/19 02/17/19 U-100 Insulin] lisinopril 40 mg PO DAILY 01/30/19 02/17/19 lovastatin 10 mg PO DAILY 01/30/19 02/17/19 metformin 500 mg PO BID 01/30/19 02/17/19 apixaban [Eliquis] 5 mg PO BID 02/17/19 02/17/19 metoprolol succinate 25 mg PO BID 02/17/19 02/17/19 Allergies Allergy/AdvReac Type Severity Reaction Status Date / Time ampicillin Allergy causes Verified 02/17/19 15:58 bleeding in his bowels. Review of Systems Constitutional Denies chills, Denies fever(s), Denies lethargy and Denies weakness Eyes Denies change in vision, Denies eye discharge, Denies irritation and Denies loss of vision ENT Ears, Nose, Mouth, and Throat: Denies change in voice, Denies neck pain and De nies sore throat Cardiovascular Denies chest pain, Reports rapid heart rate, Denies irregular heart rhythm, Denies lightheadedness, Denies palpitations, Denies dyspnea, Denies dyspnea on exertion and Denies orthopnea Respiratory Denies cough, Denies dyspnea, Denies dyspnea on exertion and Denies wheezing Gastrointestinal Gastrointestinal: Denies abdominal pain, Denies change in bowel habits, Denies diarrhea, Denies nausea and Denies vomiting Genitourinary Denies hematuria, Denies flank pain, Denies urinary incontinence and Denies urinary urgency Musculoskeletal Denies neck pain Integumentary/Breasts Denies pruritus, Denies erythema, Denies rash and Denies wounds Neurologic Denies confusion, Denies loss of vision and Denies weakness Psychiatric Denies anxiety, Denies confusion, Denies depression, Denies homicidal ideation and Denies suicidal ideation Endocrine Denies palpitations Hematologic/Lymphatic Denies easy bruising Allergic/Immunologic Denies wheezing PFSH Medical History Diabetes (Chronic) Dyslipidemia (Chronic) Gout (Chronic) Hypertension (Chronic) Surgical History H/O inguinal hernia repair (Chronic) Social History (Updated 01/30/19 @ 16:10 by Anusha Spence DO) household members: spouse Smoking Status: Never smoker alcohol intake: current substance use type: does not use Social History household members: spouse Smoking Status: Never smoker alcohol intake: current substance use type: does not use Exam Narrative Exam Narrative: GENERAL: [78] year old patient appears stated age. Well- nourished, well-developed patient, in mild distress. HEAD: Atraumatic. Normocephalic. EYES: Pupils equal round and reactive. Extraocular motions intact. No scleral icterus. No injection or drainage. ENT: Nose without bleeding, purulent drainage. Throat without erythema, tonsi llar hypertrophy or exudate. Airway patent. NECK: Trachea midline. Non tender CARDIOVASCULAR: Rapid and irregular rhythm without murmurs, gallops, or rubs. RESPIRATORY: Clear to auscultation. Breath sounds equal bilaterally. No wheezes, rales, or rhonchi. GASTROINTESTINAL: Abdomen soft, non-tender, nondistended. EXTREMITIES: No edema or joint tenderness. BACK: Nontender without deformity or crepitance. No flank tenderness. NEURO: AOx3. SKIN: No rash or erythema of visible areas Initial Vital Signs Initial Vital Signs: Vital Signs Temperature 97.6 F 02/17/19 15:21 Pulse Rate 117 H 02/17/19 15:21 Respiratory Rate 17 02/17/19 15:21 Blood Pressure 141/76 H 02/17/19 15:21 Pulse Oximetry 98 02/17/19 15:21 Procedures Cardioversion Consent Signed: Yes Indication: Rapid AFib, questionable ST depressions Number of attempts (shocks): 3 Joules used: 150 Cardiac rhythm post-cardioversion: Rapid AFib Procedural Sedation Patient Age: Patient is 5yrs or older Consent signed: Yes Time out performed: Yes Indication: cardioversion ASA Class: II Mallampati Airway Classification: Class II Preparation: air sampler applied, pulse oximeter, capnometry used, supplemental O2 applied, suction/airway equipment at bedside and IV secured IV Propofol dose (mg): 50 Complications: hypoventilation Interventions: Airway repositioned Course Course Narrative: Patient with rapid atrial fibrillation is sedated and attempts at cardioversion given his use of Eliquis and ST depressions on EKG. The cardioversion was unsuccessful and patient was therefore put on Cardizem drip. Orders Ordered: ED Orders 02/17/19 15:30 Basic Metabolic Panel Stat Complete Blood Count AUTO DIFF Stat Magnesium Stat Thyroid Stimulating Hormone Stat Sodium Chloride (Normal Saline 0.9%) 1,000 mls @ 150 mls/hr IV CONT NEFTALY Last Infusion: 02/17/19 18:04 Dose: 150 mls/hr Admin: 02/17/19 16:00 Dose: 150 mls/hr DILTIAZEM (Diltiazem 125 Mg/125 Ml-D5w) 125 mg in 125 mls @ 5 mls/hr IV TITRATE NEFTALY; Protocol Last Titration: 02/17/19 18:05 Dose: 5 mg/hr, 5 mls/hr Admin: 02/17/19 17:04 Dose: 5 mg/hr, 5 mls/hr Discontinued Medications Diltiazem HCl (Cardizem) 10 mg IV NOW ONE Stop: 02/17/19 16:44 Last Admin: 02/17/19 17:03 Dose: 10 mg Propofol (Diprivan) 85 mg 1 mg/kg (85 mg) IV NOW ONE Stop: 02/17/19 16:33 Last Admin: 02/17/19 16:54 Dose: 50 mg Vital Signs - 8 hr 02/17/19 15:21 02/17/19 16:00 02/17/19 16:27 Temperature 97.6 F Pulse Rate 117 H 124 H Respiratory Rate 17 18 14 Blood Pressure 141/76 H Blood Pressure [Left Arm] 130/79 Pulse Oximetry 98 98 02/17/19 16:30 02/17/19 16:35 02/17/19 16:40 Temperature Pulse Rate 123 H 116 H 119 H Respiratory Rate 23 16 16 Blood Pressure Blood Pressure [Left Arm] 123/72 126/81 105/73 Pulse Oximetry 99 99 99 02/17/19 16:45 02/17/19 16:50 02/17/19 16:55 Temperature Pulse Rate 126 H 115 H 110 H Respiratory Rate 17 14 17 Blood Pressure Blood Pressure [Left Arm] 100/54 L 98/57 L 97/59 L Pulse Oximetry 98 96 96 02/17/19 17:03 02/17/19 17:30 02/17/19 18:00 Temperature Pulse Rate 108 H 93 H 91 H Respiratory Rate 15 12 Blood Pressure 115/64 Blood Pressure [Left Arm] 107/76 112/65 Pulse Oximetry 99 98 MDM - Arrhythmia/Palpitations Lab Data Result diagrams: 02/17/19 15:30 02/17/19 15:30 Lab Results 02/17/19 02/17/19 02/17/19 Range/Units 15:30 15:30 15:30 WBC 9.5 (4.5-11.0) X10^3/uL RBC 5.02 (4.5-5.9) X10^6/uL Hgb 15.3 (13.5-17.5) g/dL Hct 45.2 (41-53) % MCV 90.0 (80-100) fL MCH 30.4 (26-34) PG MCHC 33.8 (30-36) % RDW 13.5 (11.6-14.8) % Plt Count 410 H (150-400) X10^3/uL Neut % (Auto) 66.2 (50-75) % Lymph % (Auto) 22.8 L (25-40) % [place] % (Auto) 8.2 (3-14) % Eos % (Auto) 2.0 (2-4) % Baso % (Auto) 0.8 (0-2) % Neut # (Auto) 6300 (9073-8355) /uL Lymph # (Auto) 2200 (7379-5861) /uL [place] # (Auto) 800 (0-900) /uL Eos # (Auto) 200 (0-450) /uL Baso # (Auto) 100 (0-100) /uL Sodium 140 (137-145) mmol/L Potassium 4.0 (3.4-5.1) mmol/L Chloride 108 H (98-107) mmol/L Carbon Dioxide 20 L (22-32) mmol/L BUN 18 (9-20) mg/dL Creatinine 1.10 (0.66-1.25) mg/dL Estimated GFR > 60.0 (>60) mL/min BUN/Creatinine Ratio 16.4 (6-22) Glucose 126 H (80-110) mg/dL Calcium 10.2 (8.4-10.2) mg/dL Magnesium 1.9 (1.6-2.3) mg/dL TSH 1.34 (0.47-4.68) uIU/mL Discharge Plan Departure Patient Disposition: Admitted As Inpatient Clinical Impression: Atrial fibrillation Qualifiers: Atrial fibrillation type: paroxysmal Qualified Code(s): I48.0 - Paroxysmal atrial fibrillation Discharge Date/Time: 02/17/19 18:00 Interventions: ED Discharge Assessment Last Done: 02/17/19 18:00 Admit Date/Time: 02/17/19 17:36 Admit Provider: Tamara Babb
--- NOTE | 2019-02-17 19:20 | PC.NURSE ---
Addendum entered by Claribel Dupree R.N. 02/17/19 22:31: 2230 - Pt resting in bed. desk monitor demostrates SR. Rate 69, BP 106/52. Cardizem gtt titrated to off. Metoprolol PO given as ordered. Monitor. SBA to bathroom. Denies lightheadedness. Steady gait. Awaiting additional meds from night pharmacy. Call light in reach. Original Note: 1829 - Pt to room from ER. Able to stand and ambulate in room. Denies lightheadedness, denies chest pain. Oriented to room and routine. Cardizem gtt @ 5mg/hr. Med to be placed in pharmacy. Wallet in safe. 1832 - Pt converted from A-fib to SR. See chart. 1919 - Dr. Babb notified that pt converted. Cardizem gtt continues at 5mg/hr. Pt state that he has a history of going down and then right back up again. Speaking of hr. Monitor. Also notified that pt is concerned with getting a referral to cardiology. States that he has an appointment in [place] in 2 weeks, but that he is concerned about the wait and frequency of returning to a-fib.
--- NOTE | 2019-02-17 20:53 | PM.HP.1 ---
History of Present Illness Date Patient Seen: 02/17/19 Time Patient Seen: 20:00 Chief complaint: states in Afib Narrative: Samina Adams (Bart) is a very pleasant 78-year-old non-smoking male with diabetes type 2, hypertension, hyperlipidemia and an auto immune conditions and newly diagnosed atrial fibrillation returns with his son in the chief complaint of recurrence of AFib. He recently established with Dr. Yusuf as his primary care provider and was seen on January 31 for a routine wellness exam and was found to be in a rapid atrial fibrillation. He had very little in the way of symptoms and was sent to the emergency department. [facility] had no available beds at the time and he was therefore transferred to [facility] in [place]. Per the patient, he was admitted there for 3 days, had a cardiology consultation, and echocardiogram which was normal. He was cardioverted and initiated on Apixaban and metoprolol. On discharge, he was referred to a [facility] outpatient washer machine who is in [place] twice a month as he lives in [place]. About a week later the patient had a recurrence of rapid AFib and he presented to the emergency department at [facility] at which point he was cardioverted and had his metoprolol increased. Today he presents because while sitting at his computer, he glanced at his watch which notified him an elevated heart rate of around 119, he felt palpitations but denied chest pain, shortness of breath dizziness, or lightheadedness. He does endorse having more frequent urination and his blood sugar increases when he feel palpitations. He denies nausea, vomiting, abdominal pain, peripheral neuropathy. Patient History Medical History (Updated 02/17/19 @ 21:18 by KATHARINE Ayala) Atrial fibrillation with rapid ventricular response (Acute) BPH (benign prostatic hyperplasia) (Chronic) History of elevated PSA (Chronic) Diabetes (Chronic) Dyslipidemia (Chronic) Gout (Chronic) Hypertension (Chronic) Surgical History H/O inguinal hernia repair (Chronic) Family History (Updated 02/17/19 @ 21:17 by KATHARINE Ayala) Mother Cancer Breast CA Father Prostate cancer Grandfather Diabetes mellitus Social History household members: spouse Smoking Status: Never smoker alcohol intake: current substance use type: does not use Family & Social History Social History: household members spouse Prior Living Arrangements House Safety & Behavioral: Feels Safe in Current Yes Environment Been Physically Hurt or No Threatened By a Person Suicidal Ideation Description None Tobacco & Substance use: Smoking Status Never smoker alcohol intake current alcohol intake frequency other, rare, wine has not drank since A-Fib dx Substance Use Type does not use Meds Home Medications Medication Instructions Recorded Confirmed Type allopurinol 300 mg PO BEDTIME 01/30/19 02/17/19 History cholecalciferol (vitamin D3) 1,000 unit PO QPM 01/30/19 02/17/19 History [Vitamin D3] insulin glargine [Lantus Solostar 20 units SUBCUT QPM 01/30/19 02/17/19 History U-100 Insulin] lisinopril 40 mg PO DAILY 01/30/19 02/17/19 History lovastatin 10 mg PO BEDTIME 01/30/19 02/17/19 History metformin 500 mg PO BID 01/30/19 02/17/19 History apixaban [Eliquis] 5 mg PO BID 02/17/19 02/17/19 History metoprolol succinate 25 mg PO BID 02/17/19 02/17/19 History Allergies Allergy/AdvReac Type Severity Reaction Status Date / Time ampicillin Allergy causes Verified 02/17/19 15:58 bleeding in his bowels. Review of Systems Review of Systems All systems reviewed & are unremarkable except as noted in HPI and below Exam Vital Signs (past 8 hours): - 02/17/19 15:21 02/17/19 16:00 02/17/19 16:27 Temperature 97.6 F Pulse Rate 117 H 124 H Respiratory Rate 17 18 14 Blood Pressure 141/76 H Blood Pressure [Left Arm] 130/79 Pulse Oximetry 98 98 02/17/19 16:30 02/17/19 16:35 02/17/19 16:40 Temperature Pulse Rate 123 H 116 H 119 H Respiratory Rate 23 16 16 Blood Pressure Blood Pressure [Left Arm] 123/72 126/81 105/73 Pulse Oximetry 99 99 99 02/17/19 16:45 02/17/19 16:50 02/17/19 16:55 Temperature Pulse Rate 126 H 115 H 110 H Respiratory Rate 17 14 17 Blood Pressure Blood Pressure [Left Arm] 100/54 L 98/57 L 97/59 L Pulse Oximetry 98 96 96 02/17/19 17:03 02/17/19 17:30 02/17/19 18:00 Temperature Pulse Rate 108 H 93 H 91 H Respiratory Rate 15 12 Blood Pressure 115/64 Blood Pressure [Left Arm] 107/76 112/65 Pulse Oximetry 99 98 02/17/19 18:30 02/17/19 19:00 Temperature 97.8 F Pulse Rate 105 H 76 Respiratory Rate 17 17 Blood Pressure 127/66 116/56 L Blood Pressure [Left Arm] Pulse Oximetry 98 98 Oxygen Delivery Method Room Air Oxygen Flow Rate 0 Narrative Exam Narrative: Gen: Alert, oriented 78 y.o. well-developed male, appears comfortable, mildly anxious HEENT: normocephalic, atraumatic, conjunctiva clear, sclera non-icteric, oral mucosa pink and moist Neck: supple, full ROM Resp: Lungs CTA, non-labored breathing CV: Irregularly irregular, no murmur or rubs Abd: soft, non-tender, normoactive BTs Skin: no lesions or rashes, dry and intact Neuro: Alert and oriented X 4 w/no focal deficits Extremities: moves all 4 extremities, is ambulatory Psyche: Mildly anxious, but very pleasant. Objective Labs Result Diagrams: 02/17/19 15:30 02/17/19 15:30 Labs: Laboratory Results - last 24 hr 02/17/19 02/17/19 02/17/19 15:30 15:30 15:30 WBC 9.5 RBC 5.02 Hgb 15.3 Hct 45.2 MCV 90.0 MCH 30.4 MCHC 33.8 RDW 13.5 Plt Count 410 H Neut % (Auto) 66.2 Lymph % (Auto) 22.8 L [place] % (Auto) 8.2 Eos % (Auto) 2.0 Baso % (Auto) 0.8 Neut # (Auto) 6300 Lymph # (Auto) 2200 [place] # (Auto) 800 Eos # (Auto) 200 Baso # (Auto) 100 Sodium 140 Potassium 4.0 Chloride 108 H Carbon Dioxide 20 L BUN 18 Creatinine 1.10 Estimated GFR > 60.0 BUN/Creatinine Ratio 16.4 Glucose 126 H Calcium 10.2 Magnesium 1.9 TSH 1.34 Assessment & Plan Assessment & Plan narrative: Samina Adams is a 78 y.o. male recently diagnosed with atrial fibrillation with RVR will be admitted to the ICU for management of such. Shortly after 1900, the Hospitalist team was informed he had converted. 1. Atrial fibrillation w/RVR, acute and present on admission, CHADS vas2 score of 4 Patient is being titrated on a diltiazem drip and will receive his evening dose of metoprolol succinate 25 mg tonight Telemetry He is started on oral diltiazem to start in the am. He will need referral to a local washer machine as he sees Dr. Yusuf Echo at [facility] was done 2 weeks ago and is not ordered for this admission Continue home dose of apixaban 5 mg po BID 2. Hypertension, chronic, stable Continue home dose of lisinopril 40 mg po daily 3. Diabetes type 2, well controlled and present on admission Pt. states last A1c is 6.2 and is trying to transition from medications to diet controlled. His glargine dose was recently decreased. Continue home dose of glargine 20 units at bedtime Hold oral antidiabetics Low dose correctional scale 4. Hyperlipidemia, chronic and controlled Continue home dose of lovastatin 10 mg po qhs 5. BPH, chronic He is not taking any medications for this at this time. 6. Gout, chronic Continue home dose of allopurinol Patient is admitted inpatient ICU as his/her stay is anticipated to exceed 2 midnights. FEN: NS at 100 ml/hour, carb control diet, check chemistries in the am VTE Prophylaxis: Continue current anticoagulation w/Apixaban Disposition: Presumed discharge to home with close cardiology follow-up Code status: Full code Admission time: 65 minutes Meds reconciled: Yes Scores CHADS-VASc Congestive heart failure: no Hypertension: yes Age 75 years or older: yes Diabetes mellitus: yes Stroke, TIA, or TE: no Vascular disease: no Age 65 to 74 years: no Sex category (female): Male CHADS-VASc Score: 4 Quality VTE Deep Vein Thrombosis/Pulmonary Embolism Present on Admission: No
--- NOTE | 2019-02-17 20:58 | P.HP_ITS ---
History of Present Illness Date Patient Seen: 02/17/19 Time Patient Seen: 20:00 Chief complaint: states in Afib Narrative: Samina Adams (Bart) is a very pleasant 78-year-old non-smoking male with diabetes type 2, hypertension, hyperlipidemia and an auto immune conditions and newly diagnosed atrial fibrillation returns with his son in the chief complaint of recurrence of AFib. He recently established with Dr. Yusuf as his primary care provider and was seen on January 31 for a routine wellness exam and was found to be in a rapid atrial fibrillation. He had very little in the way of symptoms and was sent to the emergency department. [facility] had no available beds at the time and he was therefore transferred to [facility] in [place]. Per the patient, he was admitted there for 3 days, had a cardiology consultation, and echocardiogram which was normal. He was cardioverted and initiated on Apixaban and metoprolol. On discharge, he was referred to a [facility] outpatient real estate attorney who is in [place] twice a month as he lives in [place]. About a week later the patient had a recurrence of rapid AFib and he presented to the emergency department at [facility] at which point he was cardioverted and had his metoprolol increased. Today he presents because while sitting at his computer, he glanced at his watch which notified him an elevated heart rate of around 119, he felt palpitations but denied chest pain, shortness of breath dizziness, or lightheadedness. He does endorse having more frequent urination and his blood sugar increases when he feel palpitations. He denies nausea, vomiting, abdominal pain, peripheral neuropathy. Patient History Medical History (Updated 02/17/19 @ 21:18 by KATHARINE Ayala) Atrial fibrillation with rapid ventricular response (Acute) BPH (benign prostatic hyperplasia) (Chronic) History of elevated PSA (Chronic) Diabetes (Chronic) Dyslipidemia (Chronic) Gout (Chronic) Hypertension (Chronic) Surgical History H/O inguinal hernia repair (Chronic) Family History (Updated 02/17/19 @ 21:17 by KATHARINE Ayala) Mother Cancer Breast CA Father Prostate cancer Grandfather Diabetes mellitus Social History household members: spouse Smoking Status: Never smoker alcohol intake: current substance use type: does not use Family & Social History Social History: household members spouse Prior Living Arrangements House Safety & Behavioral: Feels Safe in Current Yes Environment Been Physically Hurt or No Threatened By a Person Suicidal Ideation Description None Tobacco & Substance use: Smoking Status Never smoker alcohol intake current alcohol intake frequency other, rare, wine has not drank since A-Fib dx Substance Use Type does not use Meds Home Medications Medication Instructions Recorded Confirmed Type allopurinol 300 mg PO BEDTIME 01/30/19 02/17/19 History cholecalciferol (vitamin D3) 1,000 unit PO QPM 01/30/19 02/17/19 History [Vitamin D3] insulin glargine [Lantus Solostar 20 units SUBCUT QPM 01/30/19 02/17/19 History U-100 Insulin] lisinopril 40 mg PO DAILY 01/30/19 02/17/19 History lovastatin 10 mg PO BEDTIME 01/30/19 02/17/19 History metformin 500 mg PO BID 01/30/19 02/17/19 History apixaban [Eliquis] 5 mg PO BID 02/17/19 02/17/19 History metoprolol succinate 25 mg PO BID 02/17/19 02/17/19 History Allergies Allergy/AdvReac Type Severity Reaction Status Date / Time ampicillin Allergy causes Verified 02/17/19 15:58 bleeding in his bowels. Review of Systems Review of Systems All systems reviewed & are unremarkable except as noted in HPI and below Exam Vital Signs (past 8 hours): - 02/17/19 15:21 02/17/19 16:00 02/17/19 16:27 Temperature 97.6 F Pulse Rate 117 H 124 H Respiratory Rate 17 18 14 Blood Pressure 141/76 H Blood Pressure [Left Arm] 130/79 Pulse Oximetry 98 98 02/17/19 16:30 02/17/19 16:35 02/17/19 16:40 Temperature Pulse Rate 123 H 116 H 119 H Respiratory Rate 23 16 16 Blood Pressure Blood Pressure [Left Arm] 123/72 126/81 105/73 Pulse Oximetry 99 99 99 02/17/19 16:45 02/17/19 16:50 02/17/19 16:55 Temperature Pulse Rate 126 H 115 H 110 H Respiratory Rate 17 14 17 Blood Pressure Blood Pressure [Left Arm] 100/54 L 98/57 L 97/59 L Pulse Oximetry 98 96 96 02/17/19 17:03 02/17/19 17:30 02/17/19 18:00 Temperature Pulse Rate 108 H 93 H 91 H Respiratory Rate 15 12 Blood Pressure 115/64 Blood Pressure [Left Arm] 107/76 112/65 Pulse Oximetry 99 98 02/17/19 18:30 02/17/19 19:00 Temperature 97.8 F Pulse Rate 105 H 76 Respiratory Rate 17 17 Blood Pressure 127/66 116/56 L Blood Pressure [Left Arm] Pulse Oximetry 98 98 Oxygen Delivery Method Room Air Oxygen Flow Rate 0 Narrative Exam Narrative: Gen: Alert, oriented 78 y.o. well-developed male, appears comfortable, mildly anxious HEENT: normocephalic, atraumatic, conjunctiva clear, sclera non-icteric, oral mucosa pink and moist Neck: supple, full ROM Resp: Lungs CTA, non-labored breathing CV: Irregularly irregular, no murmur or rubs Abd: soft, non-tender, normoactive BTs Skin: no lesions or rashes, dry and intact Neuro: Alert and oriented X 4 w/no focal deficits Extremities: moves all 4 extremities, is ambulatory Psyche: Mildly anxious, but very pleasant. Objective Labs Result Diagrams: 02/17/19 15:30 02/17/19 15:30 Labs: Laboratory Results - last 24 hr 02/17/19 02/17/19 02/17/19 15:30 15:30 15:30 WBC 9.5 RBC 5.02 Hgb 15.3 Hct 45.2 MCV 90.0 MCH 30.4 MCHC 33.8 RDW 13.5 Plt Count 410 H Neut % (Auto) 66.2 Lymph % (Auto) 22.8 L [place] % (Auto) 8.2 Eos % (Auto) 2.0 Baso % (Auto) 0.8 Neut # (Auto) 6300 Lymph # (Auto) 2200 [place] # (Auto) 800 Eos # (Auto) 200 Baso # (Auto) 100 Sodium 140 Potassium 4.0 Chloride 108 H Carbon Dioxide 20 L BUN 18 Creatinine 1.10 Estimated GFR > 60.0 BUN/Creatinine Ratio 16.4 Glucose 126 H Calcium 10.2 Magnesium 1.9 TSH 1.34 Assessment & Plan Assessment & Plan narrative: Samina Adams is a 78 y.o. male recently diagnosed with atrial fibrillation with RVR will be admitted to the ICU for management of such. Shortly after 1900, the Hospitalist team was informed he had converted. 1. Atrial fibrillation w/RVR, acute and present on admission, CHADS vas2 score of 4 * Patient is being titrated on a diltiazem drip and will receive his evening dose of metoprolol succinate 25 mg tonight * Telemetry * He is started on oral diltiazem to start in the am. * He will need referral to a local real estate attorney as he sees Dr. Yusuf * Echo at [facility] was done 2 weeks ago and is not ordered for this admission * Continue home dose of apixaban 5 mg po BID 2. Hypertension, chronic, stable * Continue home dose of lisinopril 40 mg po daily 3. Diabetes type 2, well controlled and present on admission * Pt. states last A1c is 6.2 and is trying to transition from medications to diet controlled. His glargine dose was recently decreased. * Continue home dose of glargine 20 units at bedtime * Hold oral antidiabetics * Low dose correctional scale 4. Hyperlipidemia, chronic and controlled * Continue home dose of lovastatin 10 mg po qhs 5. BPH, chronic * He is not taking any medications for this at this time. 6. Gout, chronic * Continue home dose of allopurinol Patient is admitted inpatient ICU as his/her stay is anticipated to exceed 2 midnights. FEN: NS at 100 ml/hour, carb control diet, check chemistries in the am VTE Prophylaxis: Continue current anticoagulation w/Apixaban Disposition: Presumed discharge to home with close cardiology follow-up Code status: Full code Admission time: 65 minutes Meds reconciled: Yes Scores CHADS-VASc Congestive heart failure: no Hypertension: yes Age 75 years or older: yes Diabetes mellitus: yes Stroke, TIA, or TE: no Vascular disease: no Age 65 to 74 years: no Sex category (female): Male CHADS-VASc Score: 4 Quality VTE Deep Vein Thrombosis/Pulmonary Embolism Present on Admission: No
[2019-02-17] MEDS: SODIUM CHLORIDE 0.9% 1,000 ML 100 ML IV (22:13)
[2019-02-17] MEDS: METOPROLOL ER 25 MG TABLET PO (22:15)
[2019-02-17] MEDS: ALLOPURINOL 300 MG TABLET PO (22:15)
[2019-02-17] MEDS: APIXABAN 5 MG TABLET PO (22:15)
[2019-02-17] MEDS: INSULIN GLARGINE 100 UNIT/ML 3ML PEN 20 UNIT SUBCUT (22:38)
[2019-02-17] MEDS: LOVASTATIN 10 MG TABLET PO (22:40)
[2019-02-18] VITALS (7 sets, daily range): BP systolic 101–112; BP diastolic 48–65; PULSE 65–81; RESP 12–18; TEMP 36.4–37.1; O2SAT 94–99
[2019-02-18 05:16] LABS: Add Manual Diff / Slide Review NO; Basophils Absolute Auto 100 /uL (0-100); Basophils Percent Auto 0.8 % (0-2); Eosinophils Absolute Auto 200 /uL (0-450); Hematocrit 39.2 % (41-53); Hemoglobin 12.9 g/dL (13.5-17.5); Lymphocytes Absolute Auto 1800 /uL (1100-4500); Lymphocytes Percent Auto 21.6 % (25-40); Mean Corpuscular Volume 90.8 fL (80-100); Monocytes Absolute Auto 600 /uL (0-900); Monocytes Percent Auto 7.3 % (3-14); Neutrophils Absolute Auto 5500 /uL (1500-7000); Neutrophils Percent Auto 67.3 % (50-75); Platelet Count 327 X10^3/uL (150-400); Red Blood Cell Count 4.31 X10^6/uL (4.5-5.9); Red Cell Distribution Width 13.7 % (11.6-14.8); White Blood Cell Count 8.2 X10^3/uL (4.5-11.0)
[2019-02-18 05:26] LABS: Alanine Aminotransferase 15 IU/L (21-72); Albumin 3.4 g/dL (3.5-5.0); Albumin Globulin Ratio 1.4 (1.0-2.8); Alkaline Phosphatase 49 U/L (38-126); Aspartate Aminotransferase 19 IU/L (17-59); Bilirubin Total 0.5 mg/dL (0.2-1.3); Blood Urea Nitrogen 15 mg/dL (9-20); Calcium 8.9 mg/dL (8.4-10.2); Carbon Dioxide 24 mmol/L (22-32); Chloride 110 mmol/L (98-107); Estimated Glomerular Filt Rate > 60.0 mL/min (>60); Globulin 2.4 g/dL (1.7-4.1); Glucose 90 mg/dL (80-110); HEMOLYSIS < 15 (0-50); Potassium 3.7 mmol/L (3.4-5.1); Sodium 141 mmol/L (137-145); Total Protein 5.8 g/dL (6.3-8.2)
[2019-02-18 05:39] LABS: B Type Natriuretic Peptide < 100 (<100)
[2019-02-18] MEDS: dilTIAZem 30 MG TABLET PO (06:16)
[2019-02-18] MEDS: METOPROLOL ER 25 MG TABLET PO (08:12)
[2019-02-18] MEDS: APIXABAN 5 MG TABLET PO (08:12)
[2019-02-18] MEDS: SODIUM CHLORIDE 0.9% 1,000 ML 100 ML IV (08:12)
[2019-02-18 08:23] LABS: Magnesium 1.8 mg/dL (1.6-2.3)
--- NOTE | 2019-02-18 08:39 | CM.DANOTE ---
Addendum entered by Patricia Carrasco R.N. 02/18/19 10:35: Went ahead and faxed face sheet on patient to Dr. Bautista, motor adjuster, per Dr. Babb. Confirmed that fax went through. Addendum entered by Patricia Carrasco R.N. 02/18/19 08:54: Was called back to patient's room, for he had additional question. He wanted to ensure that Dr. Yusuf is aware that he is here. Let him know that hospitalist may give him update, and will also follow up with cardiology referral. Original Note: DCP: Case received, EMR reviewed and met with patient. Introduced self and role. Was able to obtain baseline health information and history from patient. DCP assessment completed with information currently available. Patient is a 78 year old male who admitted yesterday afternoon to the care of the hospitalist team. PCP: Dr. Yusuf. Payer: confirmed: Medicare/[employer]. Patient came to the hospital due to a-fib. Patient does have this history, as he was recently treated at [facility] for cardioversion. He had seen Dr. Yusuf on 01/31, and was also noted to have some a-fib, and was treated with medication. Patient stated, he was ok for a while, but felt it coming on again yesterday. Patient lives in [place] with his , Ananya, who had driven him here. Patient stated, I will need to see a motor adjuster. He is independent and active at home. He mentioned that he had been painting his house on a warm day when this all started. He is also active in the worship at [employer] [place]. P: DCP to follow closely, and be available for any resources that patient may need. Plan is for home when he is medically stable, and will need to follow up with a motor adjuster. He stated that he originally has an appt in two weeks at the [facility], but will need to be seen sooner. Patricia Carrasco RN/Yarder [employer]cher
[2019-02-18] MEDS: AMIODARONE 200 MG TABLET 400 MG PO (11:37)
--- NOTE | 2019-02-18 12:22 | PM.DS.1 ---
History of Present Illness Date Patient Seen: 02/17/19 Chief complaint: states in Afib Narrative: Written by Jocelyn ALCANTAR: Samina Adams (Bart) is a very pleasant 78-year-old non-smoking male with diabetes type 2, hypertension, hyperlipidemia and an auto immune conditions and newly diagnosed atrial fibrillation returns with his son in the chief complaint of recurrence of AFib. He recently established with Dr. Yusuf as his primary care provider and was seen on January 31 for a routine wellness exam and was found to be in a rapid atrial fibrillation. He had very little in the way of symptoms and was sent to the emergency department. [facility] had no available beds at the time and he was therefore transferred to [facility] in [place]. Per the patient, he was admitted there for 3 days, had a cardiology consultation, and echocardiogram which was normal. He was cardioverted and initiated on Apixaban and metoprolol. On discharge, he was referred to a [facility] outpatient mechanical technician who is in [place] twice a month as he lives in [place]. About a week later the patient had a recurrence of rapid AFib and he presented to the emergency department at [facility] at which point he was cardioverted and had his metoprolol increased. Today he presents because while sitting at his computer, he glanced at his watch which notified him an elevated heart rate of around 119, he felt palpitations but denied chest pain, shortness of breath dizziness, or lightheadedness. He does endorse having more frequent urination and his blood sugar increases when he feel palpitations. He denies nausea, vomiting, abdominal pain, peripheral neuropathy. Discharge Providers Date of admission: 02/17/19 17:36 Discharge Date: 02/18/19 Primary care physician: Austyn Yusuf MD Discharge provider: Tamara Babb DO Summary Discharge Diagnosis: 1. Acute paroxysmal atrial fibrillation with RVR, present on admission. Resolved. 2. Hypertension, chronic, present on admission. Stable. 3. Diabetes type II, insulin using, present on admission. Stable. 4. Hyperlipidemia, chronic, present on admission. Stable. 5. BPH, chronic, present on admission. Stable. 6. Gout, chronic, present on admission. Stable. Hospital Course: Samina Adams (Bart) is a 78-year-old male with a past medical history significant for hypertension, hyperlipidemia, diabetes mellitus type 2, insulin using, psoriasis, gout, and recently diagnosed paroxysmal atrial fibrillation who presented for elevated heart rate related to atrial fibrillation with associated mild palpitations. 1. Acute paroxysmal atrial fibrillation with RVR, present on admission. Resolved. -Patient presented with mild palpitations and heart rate monitor which demonstrated RVR. Patient reports he is rarely symptomatic of atrial fibrillation with RVR and may feel mildly dizzy and fatigued with occasional palpitations. -ED physician attempted cardioversion x3 without success. -No signs or symptoms of infection. Chest x-ray did not demonstrate any acute cardiopulmonary process. Urinalysis negative. Psoriasis does not appear to be affected. No gouty flare. -Recent echocardiogram on 01/26/2019 at [facility] demonstrated normal LVEF at 61%, normal RV size and function, no hemodynamically significant cardiac valve disease, mild pulmonary hypertension with estimated RVSP of 44 mgHg. -Continued Eliquis 5 mg twice daily. CHADS2 Vasc score 4. -Received diltiazem 10 mg IV x1 and was started on diltiazem gtt. Patient spontaneously converted not long after at approximately 1900. -Continued metoprolol succinate 25 mg twice daily. Patient received several doses of diltiazem 30 mg PO which was discontinued. Discussed case with [facility] Cardiology, Dr. Brewer, who recommended starting an anti-arrhythmic in addition to metoprolol with amiodarone 400 mg twice daily for 1 week and then 200 mg daily thereafter. Informed the patient of the risks/rare side effects associated with amiodarone and recommended continued monitoring of thyroid function, liver function, pulmonary function, and annual ophthalmology evaluation. Cardiology also recommended nuclear medicine stress test, pulmonary function testing to determine baseline pulmonary function, and sleep study for possible FLO. Currently in the process of scheduling an appointment with Dr. Jimenez of Cardiology/Electrophysiology (at the recommendation of Dr. Brewer) and [facility] will call the patient to arrange his appointment to establish care (a referral will need to be placed by his PCP). -Continued to monitor closely on telemetry. Patient continued to be in sinus rhythm upon discharge. -Continued to monitor electrolytes closely. Goal K+ > 4.0 and Mg+ 2.0. Prior to discharge patient received potassium chloride 40 mEq PO x1 and magnesium chloride 64 mEq x1 for potassium level of 3.7 and magnesium level of 1.8, respectively. May need to consider electrolyte supplementation outpatient. Ordered repeat labs to check electrolytes in 3 days for PCP to follow at hospital follow-up appointment. 2. Hypertension, chronic, present on admission. Stable. -Held lisinopril due to low normal blood pressure on metoprolol and diltiazem as above. Discharge with decreased dose of lisinopril 20 mg daily and instruction to hold if SBP in low 100s. Recommended continued adjustment of lisinopril dose outpatient per PCP. 3. Diabetes type II, insulin using, present on admission. Stable. -Last hemoglobin A1c 6.2% per patient report. The patient is trying to titrate off insulin and antihyperglycemic medications to diet control. He reports his glargine dose was recently decreased. -Continued home Lantus 20 units at bedtime. -Held oral antihyperglycemics until time of discharge. -Continued ACHS blood glucose checks and low dose correctional scale insulin. 4. Hyperlipidemia, chronic, present on admission. Stable. -Continued home lovastatin 10 mg daily at bedtime. 5. BPH, chronic, present on admission. Stable. -Not currently medically treated. 6. Gout, chronic, present on admission. Stable. -Continued home allopurinol 300 mg daily at bedtime. Status at Discharge Functional status at discharge: independent ambulation Overall status at discharge: patient is back to baseline Exam Vital Signs (past 8 hours): - 02/18/19 07:43 02/18/19 08:00 02/18/19 11:45 Temperature 98.5 F 98.7 F Pulse Rate 81 72 Respiratory Rate 17 18 Blood Pressure 101/50 L 112/65 Pulse Oximetry 94 99 97 02/18/19 13:13 Temperature Pulse Rate 70 Respiratory Rate Blood Pressure 112/60 Pulse Oximetry Oxygen Delivery Method Room Air Oxygen Flow Rate 0 Narrative Exam Narrative: General: Elderly male sitting in bed and in no acute distress, appears younger than stated age, well-developed, well-nourished, appropriately interactive. HEENT: Normocephalic, atraumatic. External ears without defect. Pupils equal, round, and reactive to light. Anicteric sclerae, moist conjunctivae, and no lid lag. Oropharynx free of erythema and cobble stoning with moist mucosa. Neck: Supple with full range of motion. No jugular venous distension. No lymphadenopathy or thyromegaly. Cardiovascular: Regular rate and rhythm without murmurs, rubs, or gallops appreciated. Pulmonary: Clear to auscultation bilaterally without crackles, wheezes, or rhonchi. Normal respiratory effort with no use of accessory muscles. Abdomen: Soft, bowel sounds present, nontender, nondistended. No hepatosplenomegaly or masses appreciated. Extremities: No clubbing, cyanosis, or edema. Skin: Normal temperature, turgor, and texture; no ulcers, or subcutaneous nodules appreciated. Scattered psoriasis on upper neck/back does not appear infected. Neurological: Cranial nerves grossly intact. Psychiatric: Normal mood and affect. Alert and oriented to person, place, and time. Objective Labs Result Diagrams: 02/18/19 05:00 02/18/19 05:00 Labs: Laboratory Results - last 24 hr 02/17/19 02/17/19 02/17/19 15:30 15:30 15:30 WBC 9.5 RBC 5.02 Hgb 15.3 Hct 45.2 MCV 90.0 MCH 30.4 MCHC 33.8 RDW 13.5 Plt Count 410 H Neut % (Auto) 66.2 Lymph % (Auto) 22.8 L [place] % (Auto) 8.2 Eos % (Auto) 2.0 Baso % (Auto) 0.8 Neut # (Auto) 6300 Lymph # (Auto) 2200 [place] # (Auto) 800 Eos # (Auto) 200 Baso # (Auto) 100 Sodium 140 Potassium 4.0 Chloride 108 H Carbon Dioxide 20 L BUN 18 Creatinine 1.10 Estimated GFR > 60.0 BUN/Creatinine Ratio 16.4 Glucose 126 H Calcium 10.2 Magnesium 1.9 Total Bilirubin AST ALT Alkaline Phosphatase B-Natriuretic Peptide Total Protein Albumin Globulin Albumin/Globulin Ratio TSH 1.34 Nasal Screen MRSA (PCR) 02/17/19 02/18/19 02/18/19 18:25 05:00 05:00 WBC 8.2 RBC 4.31 L Hgb 12.9 L Hct 39.2 L MCV 90.8 MCH 30.0 MCHC 33.0 RDW 13.7 Plt Count 327 Neut % (Auto) 67.3 Lymph % (Auto) 21.6 L [place] % (Auto) 7.3 Eos % (Auto) 3.0 Baso % (Auto) 0.8 Neut # (Auto) 5500 Lymph # (Auto) 1800 [place] # (Auto) 600 Eos # (Auto) 200 Baso # (Auto) 100 Sodium 141 Potassium 3.7 Chloride 110 H Carbon Dioxide 24 BUN 15 Creatinine 1.00 Estimated GFR > 60.0 BUN/Creatinine Ratio 15.0 Glucose 90 Calcium 8.9 Magnesium Total Bilirubin 0.5 AST 19 ALT 15 L Alkaline Phosphatase 49 B-Natriuretic Peptide < 100 Total Protein 5.8 L Albumin 3.4 L Globulin 2.4 Albumin/Globulin Ratio 1.4 TSH Nasal Screen MRSA (PCR) Negative for mrsa 02/18/19 05:00 WBC RBC Hgb Hct MCV MCH MCHC RDW Plt Count Neut % (Auto) Lymph % (Auto) [place] % (Auto) Eos % (Auto) Baso % (Auto) Neut # (Auto) Lymph # (Auto) [place] # (Auto) Eos # (Auto) Baso # (Auto) Sodium Potassium Chloride Carbon Dioxide BUN Creatinine Estimated GFR BUN/Creatinine Ratio Glucose Calcium Magnesium 1.8 Total Bilirubin AST ALT Alkaline Phosphatase B-Natriuretic Peptide Total Protein Albumin Globulin Albumin/Globulin Ratio TSH Nasal Screen MRSA (PCR) Discharge Plan Discharge Plan Patient Disposition: Home Discharge comment: You're being discharged home. Please follow-up with your primary care physician, Dr. Yusuf, at your scheduled appointment on 02/21/2019 regarding your hospitalization for atrial fibrillation with RVR and referrals for sleep study to assess for obstructive sleep apnea, nuclear medicine stress test, scrap stripper hand evaluation annually, and lung function tests to determine baseline lung function. Please have lab work performed prior to your appointment for Dr. Yusuf to evaluate. You have been started on an antiarrhythmic called amiodarone 400 mg twice daily for 1 week then 200 mg once daily there after. Amiodarone has several very, very rare side effects including: Thyroid, lung, liver, and optic nerve of the eye toxicity, therefore, you will need to have monitoring with lab work of your thyroid and liver; lung function test to determine baseline function and an annual ophthalmology evaluation. If you should develop significant shortness of breath discontinue the medication and see a medical professional immediately. Continue metoprolol succinate 25 mg twice daily. Your lisinopril dose was decreased to 20 mg daily due to your blood pressure being low normal on metoprolol and amiodarone. Do not take your lisinopril if your systolic blood pressure (top number of blood pressure reading) is in the low 100s. Your PCP will need to determine the correct dose of lisinopril going forward. Your PCP will need to place referral to Dr. Jimenez of Cardiology and electrophysiology at [facility]. Dr. Jimenez's clinic has your information and will be calling you to schedule an appointment for consultation regarding paroxysmal atrial fibrillation with RVR and further management. Discharge Med Rec/Prescriptions Prescriptions: New amiodarone 200 mg Tablet 400 mg PO BIDWM 7 Days Qty: 48 RF: 0 Continued lovastatin 10 mg tablet 10 mg PO BEDTIME RF: 0 metformin 1,000 mg tablet 500 mg PO BID RF: 0 allopurinol 300 mg tablet 300 mg PO BEDTIME RF: 0 insulin glargine 100 unit/mL (3 mL) insulin pen 20 units subcut QPM RF: 0 cholecalciferol (vitamin D3) [Vitamin D3] 1,000 unit Capsule 1,000 unit PO QPM RF: 0 metoprolol succinate 50 mg Tablet Extended Release 24 Hr 25 mg PO BID RF: 0 Eliquis 5 mg Tablet 5 mg PO BID RF: 0 Changed lisinopril 40 mg tablet 20 mg PO DAILY Qty: 0 RF: 0 Other Ambulatory Orders: Comprehensive Metabolic Panel (Stat) Timeframe: 3 Days Location: Laboratory Ordered By: Tamara Babb Magnesium (Stat) Timeframe: 3 Days Location: Laboratory Ordered By: Tamara Babb Follow up/Referrals: Austyn Yusuf MD [Primary Care Provider] - 02/21/19 (Follow-up appointment scheduled with Dr. Yusuf , 02/21. Check in at 1:40pm. ) Provider Discharge Instructions Diet: Low-fat, Low-sodium and Low-cholesterol Activity: Activity as tolerated Visit Report/Discharge Packet Instructions: DI for Atrial Fibrillation, Amiodarone, Amiodarone (By mouth) Discharge Data Primary Care Provider: Austyn Yusuf Attending Provider: Tamara Babb Admit Date/Time: 02/17/19 17:36 Discharges patient from system. Discharge Date/Time: 02/18/19 15:20 Quality VTE Deep Vein Thrombosis/Pulmonary Embolism Present on Admission: No
--- NOTE | 2019-02-18 14:22 | P.DS_ITS ---
History of Present Illness Date Patient Seen: 02/17/19 Chief complaint: states in Afib Narrative: Written by Jocelyn ALCANTAR: Samina Adams (Bart) is a very pleasant 78-year-old non-smoking male with diabetes type 2, hypertension, hyperlipidemia and an auto immune conditions and newly diagnosed atrial fibrillation returns with his son in the chief complaint of recurrence of AFib. He recently established with Dr. Yusuf as his primary care provider and was seen on January 31 for a routine wellness exam and was found to be in a rapid atrial fibrillation. [facility] very [facility] and was sent to the emergency department. [facility] had no available beds at the time and he was therefore transferred to [facility] in [place]. Per the patient, he was admitted there for 3 days, had a cardiology consultation, and echocardiogram which was normal. He was cardioverted and initiated on Apixaban and metoprolol. 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 About a week later the patient had a recurrence of rapid AFib and he presented to the emergency department at [facility] at which point he was cardioverted and had his metoprolol increased. Today he presents because while sitting at his computer, he glanced at his watch which notified him an elevated heart rate of around 119, he felt palpitations but denied chest pain, shortness of breath dizziness, or lightheadedness. He does endorse having more frequent urination and his blood sugar increases when he feel palpitations. He denies nausea, vomiting, abdominal pain, peripheral neuropathy. Discharge Providers Date of admission: 02/17/19 17:36 Discharge Date: 02/18/19 Primary care physician: Austyn Yusuf MD Discharge provider: Tamara Babb DO Summary Discharge Diagnosis: 1. Acute paroxysmal atrial fibrillation with RVR, present on admission. Resolved. 2. Hypertension, chronic, present on admission. Stable. 3. Diabetes type II, insulin using, present on admission. Stable. 4. Hyperlipidemia, chronic, present on admission. Stable. 5. BPH, chronic, present on admission. Stable. 6. Gout, chronic, present on admission. Stable. Hospital Course: Samina Adams (Bart) is a 78-year-old male with a past medical history significant for hypertension, hyperlipidemia, diabetes mellitus type 2, insulin using, psoriasis, gout, and recently diagnosed paroxysmal atrial fibrillation who presented for elevated heart rate related to atrial fibrillation with a ssociated mild palpitations. 1. Acute paroxysmal atrial fibrillation with RVR, present on admission. Resolved. -Patient presented with mild palpitations and heart rate monitor which demonstrated RVR. Patient reports he is rarely symptomatic of atrial fibrillation with RVR and may feel mildly dizzy and fatigued with occasional palpitations. -ED physician attempted cardioversion x3 without success. -No signs or symptoms of infection. Chest x-ray did not demonstrate any acute cardiopulmonary process. Urinalysis negative. Psoriasis does not appear to be affected. No gouty flare. -Recent echocardiogram on 01/26/2019 at [facility] demonstrated normal LVEF at 61%, normal RV size and function, no hemodynamically significant cardiac valve disease, mild pulmonary hypertension with estimated RVSP of 44 mgHg. -Continued Eliquis 5 mg twice daily. CHADS2 Vasc score 4. -Received diltiazem 10 mg IV x1 and was started on diltiazem gtt. Patient spontaneously converted not long after at approximately 1900. -Continued metoprolol succinate 25 mg twice daily. Patient received several doses of diltiazem 30 mg PO which was discontinued. Discussed case with [facility] Cardiology, Dr. Brewer, who recommended starting an anti-arrhythmic in addition to metoprolol with amiodarone 400 mg twice daily for 1 week and then 200 mg daily thereafter. Informed the patient of the risks/rare side effects associated with amiodarone and recommended continued monitoring of thyroid function, liver function, pulmonary function, and annual ophthalmology evaluation. Cardiology also recommended nuclear medicine stress test, pulmonary function testing to determine baseline pulmonary function, and sleep study for possible FLO. Currently in the process of scheduling an appointment with Dr. Jimenez of Cardiology/Electrophysiology (at the recommendation of Dr. Brewer) and [facility] will call the patient to arrange his appointment to establish care (a referral will need to be placed by his PCP). -Continued to monitor closely on telemetry. Patient continued to be in sinus rhythm upon discharge. -Continued to monitor electrolytes closely. Goal K+ > 4.0 and Mg+ 2.0. Prior to discharge patient received potassium chloride 40 mEq PO x1 and magnesium chloride 64 mEq x1 for potassium level of 3.7 and magnesium level of 1.8, respectively. May need to consider electrolyte supplementation outpatient. Ordered repeat labs to check electrolytes in 3 days for PCP to follow at hospital follow-up appointment. 2. Hypertension, chronic, present on admission. Stable. -Held lisinopril due to low normal blood pressure on metoprolol and diltiazem as above. Discharge with decreased dose of lisinopril 20 mg daily and instruction to hold if SBP in low 100s. Recommended continued adjustment of lisinopril dose outpatient per PCP. 3. Diabetes type II, insulin using, present on admission. Stable. -Last hemoglobin A1c 6.2% per patient report. The patient is trying to titrate off insulin and antihyperglycemic medications to diet control. He reports his glargine dose was recently decreased. -Continued home Lantus 20 units at bedtime. -Held oral antihyperglycemics until time of discharge. -Continued ACHS blood glucose checks and low dose correctional scale insulin. 4. Hyperlipidemia, chronic, present on admission. Stable. -Continued home lovastatin 10 mg daily at bedtime. 5. BPH, chronic, present on admission. Stable. -Not currently medically treated. 6. Gout, chronic, present on admission. Stable. -Continued home allopurinol 300 mg daily at bedtime. Status at Discharge Functional status at discharge: independent ambulation Overall status at discharge: patient is back to baseline Exam Vital Signs (past 8 hours): - 02/18/19 07:43 02/18/19 08:00 02/18/19 11:45 Temperature 98.5 F 98.7 F Pulse Rate 81 72 Respiratory Rate 17 18 Blood Pressure 101/50 L 112/65 Pulse Oximetry 94 99 97 02/18/19 13:13 Temperature Pulse Rate 70 Respiratory Rate Blood Pressure 112/60 Pulse Oximetry Oxygen Delivery Method Room Air Oxygen Flow Rate 0 Narrative Exam Narrative: General: Elderly male sitting in bed and in no acute distress, appears younger than stated age, well-developed, well-nourished, appropriately interactive. HEENT: Normocephalic, atraumatic. External ears without defect. Pupils equal, round, and reactive to light. Anicteric sclerae, moist conjunctivae, and no lid lag. Oropharynx free of erythema and cobble stoning with moist mucosa. Neck: Supple with full range of motion. No jugular venous distension. No lymphadenopathy or thyromegaly. Cardiovascular: Regular rate and rhythm without murmurs, rubs, or gallops appreciated. Pulmonary: Clear to auscultation bilaterally without crackles, wheezes, or rhonchi. Normal respiratory effort with no use of accessory muscles. Abdomen: Soft, bowel sounds present, nontender, nondistended. No hepatosplenome renetta or masses appreciated. Extremities: No clubbing, cyanosis, or edema. Skin: Normal temperature, turgor, and texture; no ulcers, or subcutaneous nodules appreciated. Scattered psoriasis on upper neck/back does not appear infected. Neurological: Cranial nerves grossly intact. Psychiatric: Normal mood and affect. Alert and oriented to person, place, and time. Objective Labs Result Diagrams: 02/18/19 05:00 02/18/19 05:00 Labs: Laboratory Results - last 24 hr 02/17/19 02/17/19 02/17/19 15:30 15:30 15:30 WBC 9.5 RBC 5.02 Hgb 15.3 Hct 45.2 MCV 90.0 MCH 30.4 MCHC 33.8 RDW 13.5 Plt Count 410 H Neut % (Auto) 66.2 Lymph % (Auto) 22.8 L [place] % (Auto) 8.2 Eos % (Auto) 2.0 Baso % (Auto) 0.8 Neut # (Auto) 6300 Lymph # (Auto) 2200 [place] # (Auto) 800 Eos # (Auto) 200 Baso # (Auto) 100 Sodium 140 Potassium 4.0 Chloride 108 H Carbon Dioxide 20 L BUN 18 Creatinine 1.10 Estimated GFR > 60.0 BUN/Creatinine Ratio 16.4 Glucose 126 H Calcium 10.2 Magnesium 1.9 Total Bilirubin AST ALT Alkaline Phosphatase B-Natriuretic Peptide Total Protein Albumin Globulin Albumin/Globulin Ratio TSH 1.34 Nasal Screen MRSA (PCR) 02/17/19 02/18/19 02/18/19 18:25 05:00 05:00 WBC 8.2 RBC 4.31 L Hgb 12.9 L Hct 39.2 L MCV 90.8 MCH 30.0 MCHC 33.0 RDW 13.7 Plt Count 327 Neut % (Auto) 67.3 Lymph % (Auto) 21.6 L [place] % (Auto) 7.3 Eos % (Auto) 3.0 Baso % (Auto) 0.8 Neut # (Auto) 5500 Lymph # (Auto) 1800 [place] # (Auto) 600 Eos # (Auto) 200 Baso # (Auto) 100 Sodium 141 Potassium 3.7 Chloride 110 H Carbon Dioxide 24 BUN 15 Creatinine 1.00 Estimated GFR > 60.0 BUN/Creatinine Ratio 15.0 Glucose 90 Calcium 8.9 Magnesium Total Bilirubin 0.5 AST 19 ALT 15 L Alkaline Phosphatase 49 B-Natriuretic Peptide < 100 Total Protein 5.8 L Albumin 3.4 L Globulin 2.4 Albumin/Globulin Ratio 1.4 TSH Nasal Screen MRSA (PCR) Negative for mrsa 02/18/19 05:00 WBC RBC Hgb Hct MCV MCH MCHC RDW Plt Count Neut % (Auto) Lymph % (Auto) Defiance % (Auto) Eos % (Auto) Baso % (Auto) Neut # (Auto) Lymph # (Auto) [place] # (Auto) Eos # (Auto) Baso # (Auto) Sodium Potassium Chloride Carbon Dioxide BUN Creatinine Estimated GFR BUN/Creatinine Ratio Glucose Calcium Magnesium 1.8 Total Bilirubin AST ALT Alkaline Phosphatase B-Natriuretic Peptide Total Protein Albumin Globulin Albumin/Globulin Ratio TSH Nasal Screen MRSA (PCR) Discharge Plan Discharge Plan Patient Disposition: Home Discharge comment: You're being discharged home. Please follow-up with your primary care physician, Dr. Yusuf, at your scheduled appointment on 02/21/2019 regarding your hospitalization for atrial fibrillation with RVR and referrals for sleep study to assess for obstructive sleep apnea, nuclear medicine stress test, head counselor evaluation annually, and lung function tests to determine baseline lung function. Please have lab work performed prior to your appointment for Dr. Yusuf to evaluate. You have been started on an antiarrhythmic called amiodarone 400 mg twice daily for 1 week then 200 mg once daily there after. Amiodarone has several very, very rare side effects including: Thyroid, lung, liver, and optic nerve of the eye toxicity, therefore, you will need to have monitoring with lab work of your thyroid and liver; lung function test to determine baseline function and an annual ophthal mology evaluation. If you should develop significant shortness of breath discontinue the medication and see a medical professional immediately. Continue metoprolol succinate 25 mg twice daily. Your lisinopril dose was decreased to 20 mg daily due to your blood pressure being low normal on metoprolol and amiodarone. Do not take your lisinopril if your systolic blood pressure (top number of blood pressure reading) is in the low 100s. Your PCP will need to determine the correct dose of lisinopril going forward. Your PCP will need to place referral to Dr. Jimenez of Cardiology and electrophysiology at [facility] [place]. Dr. Jimenez's clinic has your information and will be calling you to schedule an appointment for consultation regarding paroxysmal atrial fibrillation with RVR and further management. Discharge Med Rec/Prescriptions Prescriptions: New amiodarone 200 mg Tablet 400 mg PO BIDWM 7 Days Qty: 48 RF: 0 Continued lovastatin 10 mg tablet 10 mg PO BEDTIME RF: 0 metformin 1,000 mg tablet 500 mg PO BID RF: 0 allopurinol 300 mg tablet 300 mg PO BEDTIME RF: 0 insulin glargine 100 unit/mL (3 mL) insulin pen 20 units subcut QPM RF: 0 cholecalciferol (vitamin D3) [Vitamin D3] 1,000 unit Capsule 1,000 unit PO QPM RF: 0 metoprolol succinate 50 mg Tablet Extended Release 24 Hr 25 mg PO BID RF: 0 Eliquis 5 mg Tablet 5 mg PO BID RF: 0 Changed lisinopril 40 mg tablet 20 mg PO DAILY Qty: 0 RF: 0 Other Ambulatory Orders: Comprehensive Metabolic Panel (Stat) Timeframe: 3 Days Location: Laboratory Ordered By: Tamara Babb Magnesium (Stat) Timeframe: 3 Days Location: Laboratory Ordered By: Tamara Babb Follow up/Referrals: Austyn Yusuf MD [Primary Care Provider] - 02/21/19 (Follow-up appointment scheduled with Dr. Yusuf 02/21. Check in at 1:40pm. ) Provider Discharge Instructions Diet: Low-fat, Low-sodium and Low-cholesterol Activity: Activity as tolerated Visit Report/Discharge Packet Instructions: DI for Atrial Fibrillation, Amiodarone, Amiodarone (By mouth) Discharge Data Primary Care Provider: Austyn Yusuf Attending Provider: Tamara Babb Admit Date/Time: 02/17/19 17:36 Discharges patient from system. Discharge Date/Time: 02/18/19 15:20 Quality VTE Deep Vein Thrombosis/Pulmonary Embolism Present on Admission: No
[2019-02-18] MEDS: POTASSIUM CHLORIDE 20 MEQ TAB 40 MEQ PO (15:05)
[2019-02-18] MEDS: MAGNESIUM CHLORIDE 64 MG TABLET PO (15:06)
== END 2019-02-18 15:20 | disposition home or self-care (01) | DRG 310 ==
LOC: ED 17:16 → ICU 17:51
PROVIDERS: Nurse Practitioner Family; Admitting Provider Internal Medicine; Emergency Provider Emergency Medicine; Family Provider Internal Medicine; PCP Internal Medicine; Visit Provider Internal Medicine
DX: I48.0 Paroxysmal atrial fibrillation (principal); E11.9 Type 2 diabetes mellitus without complications; E78.5 Hyperlipidemia, unspecified; I10 Essential (primary) hypertension; M10.9 Gout, unspecified; Z79.4 Long term (current) use of insulin; R06.89 Other abnormalities of breathing
CPT/HCPCS: 36415; 36591; 80048; 80053; 82962; 83735; 83880; 84443; 85025; 87797; 92960; 93005; 93010; 94770; 96365; 99152; 99284; 99291; J2704

== ENCOUNTER → 2019-02-21 11:38 | Outpatient (CLI) | payer MEDICARE, SELFPAY ==
[2019-02-17 18:34] VITALS: BMI 26.0
[2019-02-21 12:04] LABS: Alanine Aminotransferase 13 IU/L (21-72); Albumin 4.3 g/dL (3.5-5.0); Albumin Globulin Ratio 1.5 (1.0-2.8); Alkaline Phosphatase 70 U/L (38-126); Aspartate Aminotransferase 20 IU/L (17-59); BUN Creatinine Ratio 14.2 (6-22); Bilirubin Total 0.6 mg/dL (0.2-1.3); Blood Urea Nitrogen 17 mg/dL (9-20); Calcium 10.1 mg/dL (8.4-10.2); Carbon Dioxide 24 mmol/L (22-32); Chloride 105 mmol/L (98-107); Estimated Glomerular Filt Rate 58.9 mL/min (>60); Globulin 2.9 g/dL (1.7-4.1); Glucose 109 mg/dL (80-110); HEMOLYSIS < 15 (0-50); Magnesium 1.8 mg/dL (1.6-2.3); Sodium 138 mmol/L (137-145); Total Protein 7.2 g/dL (6.3-8.2)
== END ==
PROVIDERS: PCP Internal Medicine; Visit Provider Internal Medicine
DX: I48.91 Unspecified atrial fibrillation (principal); Z79.899 Other long term (current) drug therapy
CPT/HCPCS: 36415; 80053; 83735

== ENCOUNTER → 2019-03-20 10:16 | Outpatient (CLI) | payer MEDICARE, SELFPAY ==
[2019-02-17 18:34] VITALS: BMI 26.0
--- NOTE | 2019-03-20 14:54 | P.PCN_ITS ---
Cardiac Stress Test Report Referral & Results Date Patient Seen: 03/20/19 Time Patient Seen: 14:30 Requesting provider: Austyn Yusuf Indication: atrial fibrillation Rest ECG: Atrial fibrillation Procedure Note: Today following both written and verbal informed consent the patient was exercised according to a standard Bang protocol patient went for a total of 4 minutes 19 seconds achieving a maximum heart rate of 197 maximum systolic blood pressure of 166. This is approximately 7.0 METs. Exercise was terminated at this point because of fatigue. Patient was also given Cardiolite through a previously started Hep-Lock IV by the injection molding process technician approximately 1 minute prior to the cessation of exercise. Orthopedic difficulties interferes with keeping up with the treadmill. No signs or symptoms of angina. Appropriate heart rate/BP response to exercise. No change in rhythm during the exercise. 1-2 mm diffuse, downsloping ST deviations of persisted for a while after exercise. LOI +20% on sedentary scale. AFib/a flutter evident during rest. Impression: Intermediate probability for ischemia. Will await perfusion imaging. Please note: Actual ECG tracings can be found in the PACS system.
--- NOTE | 2019-03-20 17:57 | DI.NM.S_ITS ---
DATE OF SERVICE: 03/20/2019 PROCEDURE PERFORMED: Exercise treadmill stress and rest myocardial perfusion imaging study with gating to assess ejection fraction performed is a 1-day study. ORDERING PROVIDER: Austyn Yusuf MD INDICATIONS: The patient is a 78-year-old male with paroxysmal atrial fibrillation. EXERCISE STRESS: The patient was able to exercise for a 4 minutes 19 seconds on a standard Bang protocol suggesting moderately impaired exercise capacity with an LOI of +35%, although apparently had orthopedic difficulties that may have made this a submaximal test. He had a normal blood pressure response to exercise. He had no chest discomfort. He had an accelerated heart rate response to exercise with his resting ECG showing apparent sinus rhythm in the 70s that then appears to have transitioned to atrial fib/flutter with a maximum heart rate of 152 bpm (106% of his predicted maximum) at peak exercise. His baseline ECG shows some nonspecific ST-segment abnormalities that become accentuated with stress but remain nonspecific because of the baseline abnormality. At 3 minutes 45 seconds of exercise, at heart rate of 150 bpm, 23.9 mCi of technetium-99 Myoview was injected and the patient was imaged 20 minutes later using a gated SPECT acquisition protocol. Previously, he had been injected with 8.7 mCi of technetium-99 Myoview and imaged 30 minutes later for the resting images. FINDINGS: 1. Raw Data: There is fairly good myocardial tracer uptake. TID ratio is normal at 0.72 with a normal lung/heart ratio of 0.37. 2. Quantitative Gated SPECT: Post stress ejection fraction is calculated at 83% without any focal wall motion abnormality. Resting ejection fraction is 78% with a normal resting end-diastolic volume of 74 mL. 3. Myocardial Perfusion Imaging: Post stress supine images show a mildly reduced tracer activity in the proximal inferior wall in a pattern consistent with diaphragmatic attenuation, supported by its complete resolution on the prone images, revealing a completely normal perfusion pattern. The resting images show a similar perfusion pattern without any significant areas of improvement. IMPRESSION: 1. Normal myocardial perfusion study. 2. No evidence for myocardial ischemia or previous myocardial infarction. 3. Normal left ventricular systolic function without any focal wall motion abnormality. 4. Moderately impaired exercise capacity, possibly due to orthopedic issues, with no chest discomfort but nonspecific ST-segment abnormalities. He was in sinus rhythm at the beginning of the study but appears to have transitioned to and atrial fibrillation/flutter at peak exercise that persisted into recovery. Clinical correlation is recommended. AdamsAbelfroy - LING/randal/ doc#: [id number]/job#: [id number] dd: 03/20/2019 16:36:00 dt: 03/20/2019 17:39:00 DICTATING MD/COPIES TO: Maximino Slaughter MD; Austyn Yusuf MD; Александр Jimenez MD COPIES MNE: KATE VANCE; MIKE
== END ==
PROVIDERS: PCP Internal Medicine; Visit Provider Internal Medicine
DX: I48.0 Paroxysmal atrial fibrillation (principal)
CPT/HCPCS: 78452; 93016; 93017; 93018; A9502

== ENCOUNTER → 2019-08-07 15:15 | Outpatient (CLI) | payer MEDICARE, SELFPAY ==
[2019-02-17 18:34] VITALS: BMI 26.0
[2019-08-07 16:37] LABS: Alanine Aminotransferase 28 IU/L (<50); Albumin 4.2 g/dL (3.5-5.0); Albumin Globulin Ratio 1.6 (1.0-2.8); Alkaline Phosphatase 83 U/L (38-126); Aspartate Aminotransferase 26 IU/L (17-59); BUN Creatinine Ratio 19.1 (6-22); Bilirubin Total 0.3 mg/dL (0.2-1.3); Blood Urea Nitrogen 21 mg/dL (9-20); Calcium 9.8 mg/dL (8.4-10.2); Carbon Dioxide 26 mmol/L (22-32); Chloride 104 mmol/L (98-107); Estimated Glomerular Filt Rate > 60.0 mL/min (>60); Globulin 2.7 g/dL (1.7-4.1); Glucose 120 mg/dL (80-110); HEMOLYSIS < 15 (0-50); Potassium 4.8 mmol/L (3.4-5.1); Sodium 141 mmol/L (137-145); Total Protein 6.9 g/dL (6.3-8.2)
[2019-08-07 17:07] LABS: TSH w/ Reflex to FT4 2.07 uIU/mL (0.47-4.68)
== END ==
PROVIDERS: PCP Internal Medicine; Visit Provider Internal Medicine
DX: I10 Essential (primary) hypertension (principal); I48.91 Unspecified atrial fibrillation
CPT/HCPCS: 36415; 80053; 84443

== ENCOUNTER → 2020-03-18 08:51 | Outpatient (CLI) | payer MEDICARE, SELFPAY ==
[2019-02-17 18:34] VITALS: BMI 26.0
[2020-03-18 09:43] LABS: Add Manual Diff / Slide Review NO; Basophils Absolute Auto 100 /uL (0-100); Basophils Percent Auto 0.7 % (0-2); Eosinophils Absolute Auto 300 /uL (0-450); Eosinophils Percent Auto 3.7 % (2-4); Hematocrit 43.7 % (41-53); Hemoglobin 14.6 g/dL (13.5-17.5); Lymphocytes Absolute Auto 1600 /uL (1100-4500); Lymphocytes Percent Auto 20.2 % (25-40); Mean Corpuscular HGB Conc 33.4 % (30-36); Mean Corpuscular Hemoglobin 30.3 PG (26-34); Mean Corpuscular Volume 90.8 fL (80-100); Monocytes Absolute Auto 700 /uL (0-900); Neutrophils Absolute Auto 5400 /uL (1500-7000); Neutrophils Percent Auto 66.4 % (50-75); Platelet Count 275 X10^3/uL (150-400); Red Blood Cell Count 4.81 X10^6/uL (4.5-5.9); Red Cell Distribution Width 13.8 % (11.6-14.8); White Blood Cell Count 8.1 X10^3/uL (4.5-11.0)
[2020-03-18 10:42] LABS: Alanine Aminotransferase 24 IU/L (<50); Albumin 4.4 g/dL (3.5-5.0); Albumin Globulin Ratio 1.8 (1.0-2.8); Alkaline Phosphatase 96 U/L (38-126); Aspartate Aminotransferase 29 IU/L (17-59); Bilirubin Total 0.5 mg/dL (0.2-1.3); Blood Urea Nitrogen 17 mg/dL (9-20); Calcium 9.8 mg/dL (8.4-10.2); Carbon Dioxide 29 mmol/L (22-32); Chloride 103 mmol/L (98-107); Cholesterol 166 mg/dL (140-199); Estimated Glomerular Filt Rate > 60.0 mL/min (>60); Globulin 2.5 g/dL (1.7-4.1); Glucose 145 mg/dL (80-110); HDL Cholesterol 41 mg/dL (40-60); HEMOLYSIS < 15 (0-50); LDL Cholesterol Calculated 84 mg/dL (<100); Potassium 4.6 mmol/L (3.4-5.1); Sodium 139 mmol/L (137-145); Total Protein 6.9 g/dL (6.3-8.2); Triglycerides 204 mg/dL (35-150)
== END ==
PROVIDERS: PCP Internal Medicine; Referring Provider Internal Medicine; Visit Provider Internal Medicine
DX: I10 Essential (primary) hypertension (principal); E78.00 Pure hypercholesterolemia, unspecified; E11.9 Type 2 diabetes mellitus without complications
CPT/HCPCS: 36415; 80053; 80061; 83036; 85025